=== PATIENT | female | born 1960 | race Caucasian/White ===

== ENCOUNTER → 2016-03-18 | Outpatient (CLI) | payer OTHER ==
--- NOTE | 2016-03-18 08:54 | REP ---
Chest x-ray: Two views. History: Cough. No comparison views. Findings: There is a granulomatous calcification in the right lower lobe. The lungs are otherwise well inflated and clear. A mild dextroconvex thoracic curve is seen. Pulmonary vasculature is not increased. Heart size is normal. Impression: No active cardiopulmonary disease. Signed by Solomon Jordan MD 03/18/2016 01:41 P
[2016-03-18 09:26] LABS: BASO % 0.8 % (0.0-1.0); EOS # 0.2 K/mm3 (0.0-0.50); EOS % 3.5 % (0.0-3.0); LYMPH % 39.7 % (24.0-44.0); MEAN CORPUSCULAR HEMOGLOBIN 31.6 pg (27.0-33.0); MEAN CORPUSCULAR HGB CONC 33.6 g/dl (32.0-36.5); MONO # 0.3 K/mm3 (0.0-0.8); MONO % 6.4 % (0.0-5.0); NEUTROPHILS # 2.2 K/mm3 (1.8-7.7); NEUTROPHILS % 45.4 % (36.0-66.0); RED CELL DISTRIBUTION WIDTH 11.8 % (11.5-14.5); WHITE BLOOD COUNT 4.9 K/mm3 (4.0-10.0)
[2016-03-18 09:40] LABS: ALBUMIN 3.2 GM/DL (3.2-5.2); ALBUMIN/GLOBULIN RATIO 0.73 (1.00-1.93); ALKALINE PHOSPHATASE 104 U/L (45-117); ALT/SGPT 22 U/L (12-78); ANION GAP 4 MEQ/L (8-16); AST/SGOT 19 U/L (15-37); BILIRUBIN,TOTAL 0.5 MG/DL (0.2-1.0); BLOOD UREA NITROGEN 20 MG/DL (7-18); CALCIUM LEVEL 8.6 MG/DL (8.5-10.1); CARBON DIOXIDE LEVEL 31 MEQ/L (21-32); CHLORIDE LEVEL 108 MEQ/L (98-107); CHOLESTEROL LEVEL 187 MG/DL (<200); CREATININE FOR GFR 0.69 MG/DL (0.55-1.02); GLOMERULAR FILTRATION RATE > 60.0 (>51); GLUCOSE, FASTING 88 MG/DL (70-105); SODIUM LEVEL 143 MEQ/L (136-145); TOTAL PROTEIN 7.6 GM/DL (6.4-8.2); TRIGLYCERIDES LEVEL 54 MG/DL (<150)
[2016-03-18 09:41] LABS: POTASSIUM SERUM 5.3 MEQ/L (3.5-5.1)
== END ==
LOC: M WUC 08:15
PROVIDERS: ATTEND Physician Assistant Medical
DX: Z00.00 Encounter for general adult medical examination without abnormal findings (principal); F17.211 Nicotine dependence, cigarettes, in remission

== ENCOUNTER → 2016-06-03 | Outpatient (CLI) | payer OTHER ==
[2016-06-03 13:57] LABS: ALKALINE PHOSPHATASE 103 U/L (45-117); ALT/SGPT 24 U/L (12-78); ANION GAP 6 MEQ/L (8-16); AST/SGOT 19 U/L (15-37); BILIRUBIN,TOTAL 0.4 MG/DL (0.2-1.0); BLOOD UREA NITROGEN 21 MG/DL (7-18); CALCIUM LEVEL 8.3 MG/DL (8.5-10.1); CARBON DIOXIDE LEVEL 31 MEQ/L (21-32); CHLORIDE LEVEL 108 MEQ/L (98-107); CREATININE FOR GFR 0.62 MG/DL (0.55-1.02); GLOMERULAR FILTRATION RATE > 60.0 (>51); GLUCOSE, FASTING 88 MG/DL (70-105); POTASSIUM SERUM 4.2 MEQ/L (3.5-5.1); SODIUM LEVEL 145 MEQ/L (136-145); THYROXINE (T4) 9.3 UG/DL (4.5-12.0); TOTAL PROTEIN 7.3 GM/DL (6.4-8.2)
== END ==
LOC: M WUC 09:41
PROVIDERS: ATTEND Physician Assistant Medical
DX: E03.9 Hypothyroidism, unspecified (principal)

== ENCOUNTER → 2016-09-05 | Outpatient (CLI) | payer OTHER ==
--- NOTE | 2016-09-07 10:17 | REPMRS ---
Patient History The patient states she had a clinical breast exam in 09/19 Patient is postmenopausal. No known family history of cancer. Digital Woman Screen Mammo: September 05, 2016 - Exam #: [id number] Bilateral CC and MLO view(s) were taken. Technologist: Marielena Marr, Technologist Prior study comparison: August 10, 2015, digital woman screen mammo performed at [facility] to [facility]. June 06, 2014, digital woman screen mammo performed at [facility]. May 17, 2013, digital woman screen mammo performed at [facility] to [facility]. FINDINGS: There are scattered fibroglandular densities. There is a moderate amount of residual fibroglandular tissue which is fairly symmetric. There is no interval development of dominant mass, architectural distortion, or clustered microcalcification typical of malignancy. There has been no change in the appearance of the mammogram from the prior studies. ASSESSMENT: BI-RADS/ACR category 1 mammogram. Negative. Recommendation Routine screening mammogram of both breasts in 1 year (for women over age 40). This mammogram was interpreted with the aid of an FDA-approved computer-aided dectection system. Electronically Signed By: Paul Jordan MD 09/07/16 [id number]
== END ==
LOC: M WHC 10:34
PROVIDERS: ATTEND Nurse Practitioner Family
DX: Z12.31 Encounter for screening mammogram for malignant neoplasm of breast (principal); Z78.0 Asymptomatic menopausal state

== ENCOUNTER → 2017-11-24 | Outpatient (CLI) | payer OTHER | LOC: M WHC 13:33 | DX: Z12.31 Encounter for screening mammogram for malignant neoplasm of breast (principal); N60.31 Fibrosclerosis of right breast; N60.32 Fibrosclerosis of left breast | CPT/HCPCS: 77067 ==

== ENCOUNTER → 2018-03-27 | Outpatient (CLI) | payer OTHER ==
--- NOTE | 2018-03-27 12:02 | REP ---
RIGHT TIBIA, FIBULA, TWO VIEWS: HISTORY: Pain. There is no acute fracture or dislocation. The joint spaces are normal in appearance. IMPRESSION: There is no acute fracture or dislocation. Electronically Signed by Otto Pastor MD 03/27/2018 12:12 P
[2018-03-27 12:33] LABS: BASO % 0.7 % (0.0-1.0); EOS # 0.1 10^3/uL (0.0-0.50); EOS % 3.1 % (0.0-3.0); HEMOGLOBIN 14.5 g/dl (12.0-15.5); LYMPH # 1.2 10^3/uL (1.5-4.5); LYMPH % 27.7 % (24.0-44.0); MEAN CORPUSCULAR HEMOGLOBIN 30.7 pg (27.0-33.0); MEAN CORPUSCULAR HGB CONC 33.7 g/dl (32.0-36.5); MEAN CORPUSCULAR VOLUME 91.1 fl (80.0-96.0); MONO # 0.5 10^3/uL (0.0-0.8); MONO % 10.3 % (0.0-5.0); NEUTROPHILS # 2.6 10^3/uL (1.8-7.7); PLATELET COUNT, AUTOMATED 350 10^3/uL (150-450); RED BLOOD COUNT 4.72 10^6/uL (4.00-5.40); WHITE BLOOD COUNT 4.5 10^3/uL (4.0-10.0)
[2018-03-27 12:44] LABS: INR 0.96; PROTHROMBIN TIME 12.8 SECONDS (12.1-14.4)
[2018-03-27 12:45] LABS: PARTIAL THROMBOPLASTIN TIME 29.7 SECONDS (25.4-37.6)
[2018-03-27 12:54] LABS: ERYTHROCYTE SEDIMENTATION RATE 26 mm/hr (0-30)
[2018-03-27 12:59] LABS: ALBUMIN 3.3 GM/DL (3.2-5.2); ALT/SGPT 22 U/L (12-78); BILIRUBIN,TOTAL 0.4 MG/DL (0.2-1.0); BLOOD UREA NITROGEN 22 MG/DL (7-18); CALCIUM LEVEL 8.8 MG/DL (8.5-10.1); CARBON DIOXIDE LEVEL 28 MEQ/L (21-32); CHLORIDE LEVEL 106 MEQ/L (98-107); GLOMERULAR FILTRATION RATE > 60.0 (>51); GLUCOSE, FASTING 96 MG/DL (70-100); POTASSIUM SERUM 3.9 MEQ/L (3.5-5.1); SODIUM LEVEL 140 MEQ/L (136-145); TOTAL PROTEIN 7.4 GM/DL (6.4-8.2)
== END ==
LOC: M WUC 10:48
PROVIDERS: ATTEND Physician Assistant
DX: R22.41 Localized swelling, mass and lump, right lower limb (principal)

== ENCOUNTER → 2018-03-27 | Outpatient (CLI) | payer OTHER ==
--- NOTE | 2018-03-27 13:40 | REP ---
Duplex extremity venous ultrasound: Right lower extremity. History: Right leg swelling. Rule out DVT. Findings: The deep veins are anechoic and fully compressible from the groin to the popliteal fossa in the right lower extremity. Color flow imaging is homogeneous. Spectral Doppler interrogation demonstrates intact respiratory variation in flow and normal manual augmentation of flow. There is no evidence of deep vein thrombosis. Impression: Negative right lower extremity duplex venous ultrasound. No evidence of deep vein thrombosis. Electronically Signed by Solomon Jordan MD 03/27/2018 01:32 P
--- NOTE | 2018-03-27 14:03 | REP ---
SOFT-TISSUE ULTRASOUND RIGHT LEG AND CALF: HISTORY: Patient reports feeling a lump in different places in the lateral calf area. She cannot pinpoint this lump at the time of the study. Findings: Scanning along the lateral calf soft tissues demonstrates an isoechoic to slightly hyperechoic area in the lateral calf 7 mm in diameter surrounded by some edematous fluid. This may be a small area of inflamed fat. No mass lesion is seen. No cyst or evidence of thrombophlebitis seen. IMPRESSION: Small lobule of inflamed or edematous fat seen in the lateral calf. No mass or cyst seen. No suspicious abnormality. Electronically Signed by Solomon Jordan MD 03/27/2018 05:35 P
== END ==
LOC: M RAD 12:51
PROVIDERS: ATTEND Physician Assistant
DX: R22.41 Localized swelling, mass and lump, right lower limb (principal)

== ENCOUNTER → 2020-07-10 | Outpatient (CLI) | payer OTHER ==
--- NOTE | 2020-07-10 16:26 | REPMRS ---
Patient History The patient states she had a clinical breast exam in 07/2020. Patient is postmenopausal. No known family history of cancer. No Hormone Replacement Therapy Patient states no breast complaints today. Patient has signed MRS History Sheet. Digital Woman Screen Mammo: July 10, 2020 - Exam #: [id number] Bilateral CC and MLO view(s) were taken. Technologist: Maura Senior, Technologist Prior study comparison: November 24, 2017, bilateral digital woman screen mammo performed at [facility]. September 05, 2016, digital woman screen mammo performed at [facility]. FINDINGS: There are scattered fibroglandular densities. Screening. Digital screening (2D) mammography was performed bilaterally in the CC and MLO projections. Additionally, breast tomosynthesis (3D mammography) was performed bilaterally in the CC and MLO projections. Todays exam was compared to the prior exams(s). By history, the patient has no complaints of a palpable breast abnormality or other significant breast complaints. The breasts are unchanged in size and shape. There are no amena-soft tissue densities or spiculated masses. There is no internal architectural distortion.Once again, stable benign appearing calcifications are seen. There are no suspicious amena-calcific clusters. Skin thickening or nipple retraction is not present. IMPRESSION: BI-RADS Category 2- Benign Findings(s). There is no evidence of malignant alteration of the breasts. Followup examination recommended in one year. The Volpara volumetric breast density category is B, there are scattered areas of fibroglandular density. This mammogram was read with the assistance of Ok [employer],an FDA approved computer aided detection system for mammography. The lifetime Tyrer-Cuzick score is 6% Negative x-ray reports should not delay surgical consultation if a dominant or clinically suspicious mass is present. Not all breast cancers can be identified by mammography. Therefore, we recommend that you continue to perform regular breast self-examination and physical examination and then promptly contact your physician of any concerns or changes. Adenosis and dense breasts may obscure an underlying neoplasm. Assessment: BI-RADS/ACR category 2 mammogram. Benign Findings. Recommendation Routine screening mammogram of both breasts in 1 year. Electronically Signed By: John Longoria DO 07/10/20 [id number]
== END ==
LOC: M WHC 13:58
PROVIDERS: ATTEND Advanced Practice Midwife
DX: Z12.31 Encounter for screening mammogram for malignant neoplasm of breast (principal)

== ENCOUNTER 2020-11-16 23:22 | Inpatient (IN) | payer OTHER ==
[~2020-11-16] VITALS: Ht 162.6 cm; Wt 63.0 kg
[2020-11-17] VITALS (14 sets, daily range): BP systolic 112–185; BP diastolic 56–129
[2020-11-17 01:33] LABS: RSV AMPLIFICATION NEGATIVE (NEGATIVE)
[2020-11-17] MEDS ORDERED: ISOVUE-370 76% 100ML VIAL As Ordered ONE (02:16)
--- NOTE | 2020-11-17 04:00 | REPVR ---
PROCEDURE INFORMATION: Exam: CTA Chest With Contrast Exam date and time: 11/17/2020 2:10 AM Age: 60 years old Clinical indication: Pain; Left-sided; Additional info: SOB, +ddimer, left sided pleural effusion TECHNIQUE: Imaging protocol: Computed tomographic angiography of the chest with contrast. 3D rendering (Not supervised by radiologist): MIP and/or 3D reconstructed images were created by the technologist. Radiation optimization: All CT scans at this facility use at least one of these dose optimization techniques: automated exposure control; mA and/or kV adjustment per patient size (includes targeted exams where dose is matched to clinical indication); or iterative reconstruction. Contrast material: ISO; Contrast volume: 75 ml; Contrast route: INTRAVENOUS (IV); COMPARISON: CR Chest, 2 view PA, Lat 11/16/2020 10:23 PM FINDINGS: PULMONARY ARTERIES: Diameter of the main pulmonary trunk at 29.6 mm is at the upper end of normal. Enhancement within the pulmonary arteries is preserved bilaterally through the distal segmental levels, without evidence of acute appearing occlusive pulmonary emboli. HEART AND AORTA: Cardiac size is within normal limits. No pericardial effusion. Evaluation of the proximal aorta is compromised by cardiac motion artifact. No thoracic aortic aneurysm or dissection is seen otherwise. There is atherosclerotic disease. Visualized proximal great vessels within the superior mediastinum are preserved. MEDIASTINUM: No mediastinal gas. The visualized thyroid gland is within normal limits. No mediastinal hematoma. Small amount of fluid is seen within the pericardial recesses. There is a 6.1 mm short axis prevascular lymph node noted. 10.9 mm short axis AP window lymph nodes noted. 9.5 mm short axis paratracheal lymph nodes are seen. Asymmetric prominent left hilar lymph nodes up to 8 mm in short axis noted. The significance of these lymph nodes is uncertain. Clinical correlation and follow-up is advised. No hiatal hernia. No periesophageal inflammatory stranding. LUNGS: There is a moderately large complex appearing slightly lobulated and non dependent left pleural effusion which demonstrates some expansile/mass-effect displacing the left hemidiaphragm downward. This could be inflammatory /infectious or malignant. Consider aspiration and culture/cytology. Pleural thickening along the left lung apex and the left mediastinal surface is noted. Confluent left upper lobe and lower lobe pulmonary opacities with a few air bronchograms noted. This could be secondary to atelectasis or pneumonia, however underlying mass cannot be excluded. There is an approximate 4 cm area of slight hypoenhancement within the collapse perihilar left lower lobe which could be related to infection or malignancy. There is a slightly lobular 2 cm area of slight hypoenhancement anteriorly at the lingula with similar differential. Re-evaluation of the left lung once fully expanded is advised. No pneumothorax is seen bilaterally. Emphysematous changes are noted. Mild dependent atelectasis at the right lung base. Right apical parenchymal scarring noted. Right lower lobe calcified granuloma noted. UPPER ABDOMEN: No free air or free fluid within the visualized upper most abdomen. Slight prominence of the visualized adrenal glands, likely secondary to hyperplasia. MSK AND BODY WALL: Bilateral breast fibroglandular calcifications noted. Correlation with clinical breast exam and recent mammogram is advised. Further characterization of these calcifications is limited by this study. Degenerative changes of the thoracic spine noted. IMPRESSION: No evidence for acute pulmonary embolus. Moderately large complex left pleural effusion with some mass effect. Confluent left pulmonary opacities are noted. Findings, differential and recommendations discussed above in detail. A few borderline lymph nodes are noted. Three month follow-up chest CT is advised to confirm resolution of these findings. Other incidental findings and nonemergent recommendations discussed above. Electronically signed by: Alberto Mcgill On 11/17/2020 03:59:48 AM
[2020-11-17] MEDS ORDERED: D5W/0.9% SODIUM CHLORIDE 1,000 ML IV SCH (05:10)
[2020-11-17] MEDS ORDERED: LEVALBUTEROL 1.25 MG/0.5 ML CONCENTRATE NEB NEB PRN (05:10)
[2020-11-17] MEDS ORDERED: BISACODYL 10 MG SUPP PR PRN (05:10)
[2020-11-17] MEDS ORDERED: ACETAMINOPHEN TAB 650MG DOSE (2X325MG) PO PRN (05:10)
[2020-11-17] MEDS ORDERED: ONDANSETRON 4MG/2ML VIAL IV PRN (05:10)
[2020-11-17] MEDS ORDERED: PERCOCET 5MG/325MG TAB PO PRN (05:10)
[2020-11-17] MEDS ORDERED: NORCO, ANEXSIA 5/325MG TABLET (HYDROcodone/ACETAMINOPHEN) PO PRN (05:10)
[2020-11-17] MEDS ORDERED: MIDAZOLAM INJ 2MG/2ML VIAL (J2250 PER 1MG) As Ordered ONE (05:29)
[2020-11-17] MEDS ORDERED: flumazeniL 0.5 MG/5 ML VIAL As Ordered ONE (05:30)
[2020-11-17] MEDS ORDERED: LIDOCAINE 1% MDV 20ML VIAL As Ordered ONE (05:31)
--- NOTE | 2020-11-17 05:44 | HPEPDOC ---
[facility] Medical History & Physical Date of Admission Nov 17, 2020 Date of Service: Nov 17, 2020 Attending Physician: JUAN NAVARRO MD History and Physical CHIEF COMPLAINT: SOB HISTORY OF PRESENT ILLNESS: Patient is a 60 yo female presenting with a 2 week history of progressively worsening SOB made worse with exertion, but now at rest as well. She presented to an urgent care yesterday evening and was found to have an SPO2 in the 80s with a positive d-dimer, and a CXR showing a large L-sided pleural effusion. In the ED she was found to have hypercarbic, hypoxic respiratory failure and CTA showing a L-sided pleural effusion. Dr. Cherry was contacted for chest tube placement and she was placed on biPAP. PAST MEDICAL HISTORY: Nicotine use disorder PAST SURGICAL HISTORY: L-ACL reconstruction SOCIAL HISTORY: Patient admits to about a 59 pack year history. She has smoked about 1 PPD since age 11. She admits to very occasional alcohol use about 1 glass of wine/week She denies any illicit drug use including, marijuana, heroin, cocaine, or PCP. She denies any history of recent travel Denies any pets at home. FAMILY HISTORY: Father of complications from COPD/emphysema Mother of diabetes complications No family history of lung cancer she is aware of. ALLERGIES: Please see below. REVIEW OF SYSTEMS: Constitutional: Denies fevers, chills, night sweats, or recent unexpected weight change HEENT: Denies headaches, head trauma, no visual changes or eye pain, denies nosebleeds or difficulty swallowing. Cardiovascular: Denies chest pain, palpitations, or orthopnea. Respiratory: Denies wheezing. Admits to shortness of breath and cough productive of clear sputum GI: Denies nausea, vomiting, abdominal pain, diarrhea, or constipation : Denies pain with urination or frequency Musculoskeletal: Denies joint pain or swelling Neuro/psych: Denies muscle weakness or sensory loss Skin: Denies skin rashes HOME MEDICATIONS: Please see below. PHYSICAL EXAMINATION: VITAL SIGNS: See below GENERAL APPEARANCE: Flushed appearing female sitting upright in bed with BiPAP on in no acute distress HEENT: NC, AT, EOMI, no scleral icterus, moist mucous membranes, no pharyngeal erythema. CARDIOVASCULAR: Tachycardic rate, regular rhythm, normal S1-S2. No murmurs, gallops, rubs. LUNGS: CTAB with diminished breath sounds, crackles appreciated on the the left. No wheezes or rhonchi. Dullness to percussion left greater than right ABDOMEN: Soft, nontender, nondistended, bowel sounds present. No hepatosplenomegaly. No masses or ecchymosis. No CVA tenderness. EXTREMITIES: No swelling or edema NEUROLOGICAL: No focal or sensory deficits. CN II-XII grossly intact. PSYCHIATRIC: Normal mood and affect LABORATORY DATA: See below. IMAGIN11/17/2020 CT angiogram chest "IMPRESSION: No evidence for acute pulmonary embolus. Moderately large complex left pleural effusion with some mass effect. Confluent left pulmonary opacities are noted. Findings, differential and recommendations discussed above in detail. A few borderline lymph nodes are noted. Three month follow-up chest CT is advised to confirm resolution of these findings." Other incidental findings and nonemergent recommendations discussed above MICROBIOLOGY: Please see below. Assessment/Plan: #. L-sided pleural Effusion -Management per thoracic surgery, Dr. Cherry consulted, recommendations appreciated #. Likely acute on chronic hypercarbic hypoxic respiratory failure -poc ABG showing hypercarbic respiratory acidosis,placed on bipap in the ED, will continue on floor -Suspect this may be from underlying lung disease and the effusion itself. -Pulmonary will need to be consulted for ongoing management in AM. #. Nicotine use disorder -Nicotine patch DVT prophylaxis: Per thoracic surgery Disposition: Pending improvement Vital Signs Vital Signs Date Time Temp Pulse Resp B/P (MAP) Pulse Ox O2 Delivery O2 Flow Rate FiO2 11/17/20 05:17 91 94 11/17/20 05:17 98.8 19 179/86 (117) Nasal Cannula 4.0 11/17/20 04:56 40 Laboratory Data Labs 24H Laboratory Tests 2 11/17/20 00:47: Coronavirus (COVID-19)(PCR) NEGATIVE, Influenza Type A (RT-PCR) NEGATIVE, Influenza Type B (RT-PCR) NEGATIVE, Respiratory Syncytial Virus (PCR) NEGATIVE 11/17/20 02:42: POC pH (Misc Panel) 7.308L, POC Base Excess (Misc Panel) 14.0H, POC Saturated Percent O2 (Misc) 93L, POC pO2 (Misc Panel) 76.0L, POC pCO2 (Misc Panel) 79.8*H, POC HCO3 (Misc Panel) 40.0H, POC Total CO2 (Misc Panel) 42.0H 11/17/20 04:41: POC pH (Misc Panel) 7.310L, POC Base Excess (Misc Panel) 14.0H, POC Saturated Percent O2 (Misc) 88L, POC pO2 (Misc Panel) 62.0L, POC pCO2 (Misc Panel) 80.1*H, POC HCO3 (Misc Panel) 40.3H, POC Total CO2 (Misc Panel) 43.0H Home Medications Scheduled Multivitamins (Thera M Plus Tablet) 1 Each Tablet, 1 TAB PO DAILY Allergies Coded Allergies: No Known Allergies (Unverified , 07/07/08) GME ATTESTATION GME ATTESTATION My faculty preceptor for this patient encounter was physically present during the encounter and was fully available. All aspects of the patient interview, examination, medical decision making process, and medical care plan development were reviewed and approved by the faculty preceptor. The faculty preceptor is aware and concurs with the plan as stated in the body of this note and will attest to such by his/her cosignature. ATTENDING NOTE Text Note Date of Service The patient was seen on 11/17/20. NOTE TIME OF SERVICE 510AM is a 60 yr old F w a hx of "lung scar", tobacco abuse and remote hx of Vaping who presented w c/o shortness of breath & fatigue for several weeks. PE: BIPAP mask in place/ appears chronically ill / breath sounds diminished / dullness to percussion at the left She will be admitted for # Acute on Chronic Hypoxemic and Hypercarbic Respiratory Failure -consult Pulm for BIPAP co-management # Left sided Pleural effusion (likely malignant) - f/u w for thoracentesis & f/u on pleural fluid analysis results # ADAM & LLL lesions (likley malignancy) - hold off abx pending Pulm recs # Breast Calcifications MAMOGRAM JULY 2020: Assessment: BI-RADS/ACR category 2 mammogram. Benign Findings. rest per 's H&P SWETA SOLIMAN DO Nov 17, 2020 05:44 JUAN NAVARRO MD Nov 17, 2020 23:04
--- NOTE | 2020-11-17 05:48 | IPNPDOC ---
Text Note Date of Service The patient was seen on 11/17/20. NOTE TIME OF SERVICE 510AM is a 60 yr old F w a hx of "lung scar", tobacco abuse and remote hx of Vaping who presented w c/o shortness of breath & fatigue for several weeks. PE: BIPAP mask in place/ appears chronically ill / breath sounds diminished / dullness to percussion at the left She will be admitted for # Acute on Chronic Hypoxemic and Hypercarbic Respiratory Failure -consult Pulm for BIPAP co-management # Left sided Pleural effusion (likely malignant) - f/u w for thoracentesis & f/u on pleural fluid analysis results # ADAM & LLL lesions (likley malignancy) - hold off abx pending Pulm recs # Breast Calcifications - will need breast US & mammogram rest per 's H&P VS,Fishbone, I+O VS, Fishbone, I+O Vital Signs Date Time Temp Pulse Resp B/P (MAP) Pulse Ox O2 Delivery O2 Flow Rate FiO2 11/17/20 05:17 91 94 11/17/20 05:17 98.8 19 179/86 (117) Nasal Cannula 4.0 11/17/20 04:56 40 JUAN NAVARRO MD Nov 17, 2020 05:48
[2020-11-17 05:50] LABS: BASO # 0.1 10^3/uL (0.0-0.2); BASO % 0.8 % (0.0-1.0); EOS # 0.1 10^3/uL (0.0-0.5); EOS % 1.2 % (0.0-3.0); HEMATOCRIT 53.4 % (36.0-47.0); HEMOGLOBIN 16.6 g/dl (12.0-15.5); LYMPH # 1.4 10^3/uL (1.5-5.0); LYMPH % 18.6 % (24.0-44.0); MEAN CORPUSCULAR HEMOGLOBIN 30.9 pg (27.0-33.0); MEAN CORPUSCULAR HGB CONC 31.1 g/dl (32.0-36.5); MEAN CORPUSCULAR VOLUME 99.3 fl (80.0-96.0); MONO # 0.7 10^3/uL (0.0-0.8); MONO % 9.1 % (2.0-8.0); NEUTROPHILS # 5.1 10^3/uL (1.5-8.5); PLATELET COUNT, AUTOMATED 338 10^3/uL (150-450); RED BLOOD COUNT 5.38 10^6/uL (4.00-5.40); WHITE BLOOD COUNT 7.4 10^3/uL (4.0-10.0)
[2020-11-17 06:00] LABS: INR 0.97; PROTHROMBIN TIME 13.3 SECONDS (12.7-14.5)
[2020-11-17 06:06] LABS: BLOOD UREA NITROGEN 17 MG/DL (7-18); CALCIUM LEVEL 8.8 MG/DL (8.8-10.2); CARBON DIOXIDE LEVEL 36 MEQ/L (21-32); CHLORIDE LEVEL 102 MEQ/L (98-107); CREATININE FOR GFR 0.44 MG/DL (0.55-1.30); GLOMERULAR FILTRATION RATE > 60.0 (>45); GLUCOSE, FASTING 96 MG/DL (70-100); POTASSIUM SERUM 4.5 MEQ/L (3.5-5.1); SODIUM LEVEL 142 MEQ/L (136-145)
[2020-11-17] MEDS ORDERED: VITMTA PO (06:18)
[2020-11-17] MEDS ORDERED: HOME MED LIST COMPLETE! XX SCH (06:20)
[2020-11-17] MEDS: KETOROLAC 30 MG/ML 1ML VIAL IV SCH ×3 (07:02→20:13)
[2020-11-17] MEDS ORDERED: MIDAZOLAM INJ 2MG/2ML VIAL (J2250 PER 1MG) IV ONE (07:35)
[2020-11-17] MEDS ORDERED: LIDOCAINE 1% MDV 20ML VIAL IM ONE (07:35)
[2020-11-17] MEDS ORDERED: MIDAZOLAM INJ 2MG/2ML VIAL (J2250 PER 1MG) IV STA (07:38)
[2020-11-17] MEDS: LEVALBUTEROL 1.25 MG/0.5 ML CONCENTRATE NEB NEB SCH ×3 (07:41→20:01)
--- NOTE | 2020-11-17 08:02 | REP ---
INDICATION: after chest tube placed COMPARISON: 11/16/2020 TECHNIQUE: Portable AP view of the chest FINDINGS: Left-sided chest tube has been subsequently placed. Left-sided pleural effusion is considerably improved. Left mid to lower lobe atelectasis is identified. Remainder of lung dominguez are relatively clear. No obvious pneumothorax. IMPRESSION: 1. Left-sided chest tube with significantly decreased left pleural effusion. 2. Minimal amount of residual left pleural fluid and left lower lobe atelectasis now identified. <Electronically signed by Keaton Stanley > 11/17/20 [id number]
[2020-11-17] MEDS: NICOTINE 14 MG/24 HR TRANSDERMAL TD SCH (08:37)
[2020-11-17] MEDS: MOM 30ML SUSPENSION UDC PO SCH (08:37)
[2020-11-17] MEDS: DOCUSATE SODIUM 100MG CAPSULE PO SCH ×2 (08:37→20:14)
[2020-11-17] MEDS: PANTOPRAZOLE 40MG TAB (PROTONIX) PO SCH (08:38)
[2020-11-17] MEDS: PERCOCET 5MG/325MG TAB PO PRN ×2 (08:49→16:21)
[2020-11-17 08:59] LABS: LDH LACTATE DEHYDROGENASE 162 U/L (84-246)
[2020-11-17] MEDS ORDERED: HEPARIN SOD (PORCINE) 5000UNITS/ML 1ML VIAL/SYRINGE SC SCH (09:00)
[2020-11-17 09:14] LABS: PH BODY FLUID 7.745 UNITS (NOT ESTABLISHED); SOURCE, BODY FLUID pH PLEURAL
[2020-11-17 09:16] LABS: APPEARANCE, BODY FLUID CLEAR (CLEAR); PLEURAL FL COLOR PALE YELLOW (COLORLESS); SOURCE, BODY FLUID PLEURAL
--- NOTE | 2020-11-17 09:32 | CR.PDOC ---
General Date of Consultation: Nov 17, 2020 Referring Provider: JUAN NAVARRO MD Attending Physician: JUAN NAVARRO MD Consultation REASON FOR CONSULTATION/CHIEF COMPLAINT: Shortness of breath. HISTORY OF PRESENT ILLNESS: This is a 60-year-old lady with past medical history of smoking presented to hospital with shortness of breath. Patient has been experiencing shortness of breath for the last 3 days. He has became progressive the point where she had to be admitted to the hospital. Other associated symptom include productive cough consist of yellow sputum which is not her baseline. She denies of fever, chills, chest pain, palpitation, orthopnea, lower extremity swelling. She denies of any allergy, pets, sick contact, travel history. Upon arrival to the hospital, patient was found to be hypercapnic and hypoxic on initial blood gas. She was immediately put on BiPAP. I was consulted at that time. Further work-up revealed she has a large loculated left sided pleural effusion which thoracic surgery was consulted and a large bore chest tube has been placed for drainage. She was also found to be wheezing on admission and has been admitted for community-acquired pneumonia and COPD exacerbation. PAST MEDICAL HISTORY: Nicotine use disorder PAST SURGICAL HISTORY: L-ACL reconstruction SOCIAL HISTORY: Patient admits to about a 59 pack year history. She has smoked about 1 PPD since age 11. She admits to very occasional alcohol use about 1 glass of wine/week She denies any illicit drug use including, marijuana, heroin, cocaine, or PCP. She denies any history of recent travel Denies any pets at home. FAMILY HISTORY: Father of complications from COPD/emphysema Mother of diabetes complications No family history of lung cancer she is aware of. ALLERGIES: Please see below. ALLERGIES: Please see below. HOME MEDICATIONS: Please see below. REVIEW OF SYSTEMS: CONSTITUTIONAL: Denies of appetite change, weight loss, fever, chills, night sweats. HEENT: Denies of sinus pain or sinus pressure, sore throat. CARDIOVASCULAR: Denies chest pain or palpitation, orthopnea, PND, lower extremity swelling. RESPIRATORY: Admits to shortness of breath and productive cough. Denies of wheezing, hemoptysis. GENITOURINARY: Denies of dysuria or flank pain. MUSCULOSKELETAL: Denies of joint pain or swelling. GASTROINTESTINAL: Denies abdominal pain, nausea, vomiting, blood in stool. SKIN: Denies a rash. NEUROLOGICAL: Denies of slurred speech or focal weakness. PSYCHIATRIC: Denies depression. ENDOCRINE: Denies weight change. HEMATOLOGIC/LYMPHATIC: Denies bleeding. ALLERGIC/IMMUNOLOGIC: Denies allergy. PHYSICAL EXAMINATION: VITAL SIGNS: Please see below. GENERAL APPEARANCE: Appears older than stated age but not in any distress, alert and oriented x3. HEENT: No evidence of JVD or cervical adenopathy, neck is supple. RESPIRATORY: Diffuse bilateral wheezing with left basilar crackles. CARDIOVASCULAR: Normal S1-S2 with no evidence of murmur. ABDOMEN: Soft nontender hyperactive bowel sounds. EXTREMITIES: No evidence of clubbing or lower extremity swelling. NEUROLOGICAL: No focal finding. PSYCHIATRIC: Alert and oriented x3, not depressed. LABORATORY DATA: Please see below. ASSESSMENT/PLAN: This is a 60-year-old lady with past medical history of smoking presented to hospital with shortness of breath. 1. Loculated left-sided pleural effusion status post chest tube insertion by thoracic surgery 2. COPD exacerbation 3. Community-acquired pneumonia 4. Tobacco abuse 5. Acute on chronic hypercapnic hypoxic respiratory failure secondary to COPD exacerbation Plan: -Left fluid analysis is consistent with exudative process. Differential includes parapneumonic effusion, empyema, malignant effusion. Continue to monitor output. Fluid cytology and cultures are pending. -Recommend to start patient on treatment for community-acquired pneumonia with ceftriaxone and azithromycin. -Recommend to start patient for COPD exacerbation with systemic corticosteroid. -Please add ipratropium nebulizer to her regimen. -Once she is stabilized from COPD exacerbation standpoint, she should be discharged with Spiriva and albuterol as needed. -It appears she may be a chronic CO2 retainer. She may qualify for home BiPAP therapy. This can be evaluated further when she is seen in the pulmonary clinic. -Strongly advised smoking cessation. Vital Signs/I&O Vital Signs Date Time Temp Pulse Resp B/P (MAP) Pulse Ox O2 Delivery O2 Flow Rate FiO2 11/17/20 08:49 84 16 133/73 94 Nasal Cannula 4.0 11/17/20 06:00 40 11/17/20 05:17 98.8 I&O- Last 24 Hours up to 6 AM 11/17/20 06:00 Intake Total 0 ml Output Total 350 ml Balance -350 ml Laboratory Data Labs 24H Laboratory Tests 2 11/17/20 00:47: Coronavirus (COVID-19)(PCR) NEGATIVE, Influenza Type A (RT-PCR) NEGATIVE, Influenza Type B (RT-PCR) NEGATIVE, Respiratory Syncytial Virus (PCR) NEGATIVE 11/17/20 02:42: POC pH (Misc Panel) 7.308L, POC Base Excess (Misc Panel) 14.0H, POC Saturated Percent O2 (Misc) 93L, POC pO2 (Misc Panel) 76.0L, POC pCO2 (Misc Panel) 79.8*H, POC HCO3 (Misc Panel) 40.0H, POC Total CO2 (Misc Panel) 42.0H 11/17/20 04:41: POC pH (Misc Panel) 7.310L, POC Base Excess (Misc Panel) 14.0H, POC Saturated Percent O2 (Misc) 88L, POC pO2 (Misc Panel) 62.0L, POC pCO2 (Misc Panel) 80.1*H, POC HCO3 (Misc Panel) 40.3H, POC Total CO2 (Misc Panel) 43.0H 11/17/20 05:33: Immature Granulocyte % (Auto) 0.3, Neutrophils (%) (Auto) 70.0H, Lymphocytes (%) (Auto) 18.6L, Monocytes (%) (Auto) 9.1H, Eosinophils (%) (Auto) 1.2, Basophils (%) (Auto) 0.8, Neutrophils # (Auto) 5.1, Lymphocytes # (Auto) 1.4L, Monocytes # (Auto) 0.7, Eosinophils # (Auto) 0.1, Basophils # (Auto) 0.1, Nucleated Red Blood Cells % (auto) 0.0, Prothrombin Time 13.3, Prothromb Time International Ratio 0.97, Anion Gap 4L, Glomerular Filtration Rate > 60.0, Calcium Level 8.8, Lactate Dehydrogenase 162 11/17/20 07:58: Body Fluid pH 7.745, Body Fluid pH Source PLEURAL, Body Fluid WBC (Auto) 396H, Body Fluid RBC (Auto) < 2, Body Fluid Mononuclear Cells % Auto 94.4H, Fluid Polymorphonuclear Cell % Auto 5.6H, Pleural Fluid Source PLEURAL, Pleural Fluid Color PALE YELLOW, Pleural Fluid Appearance CLEAR CBC/BMP Laboratory Tests 11/17/20 05:33 Microbiology Microbiology 11/17/20 Acid Fast Stain, Received Pending 11/17/20 Mycobacterial Culture, Received Pending 11/17/20 Fungal Smear, Received Pending 11/17/20 Fungal Culture, Received Pending 11/17/20 Gram Stain, Received Pending 11/17/20 Anaerobic Culture, Received Pending 11/17/20 Body Fluid Culture, Received Pending Allergies Coded Allergies: No Known Allergies (Unverified , 07/07/08) Home Medications Scheduled Multivitamins (Thera M Plus Tablet) 1 Each Tablet, 1 TAB PO DAILY, (Reported) BARBARA BARBOUR MD Nov 17, 2020 09:32
--- NOTE | 2020-11-17 09:48 | CR ---
CONSULTATION DATE: 11/17/2020 REFERRING PHYSICIAN/REASON FOR CONSULTATION: Patient is seen at the request of Dr. Gordon of the Recovery Room for a large pleural effusion with hypercarbia. HISTORY OF PRESENT ILLNESS: The patient is a 60-year-old white female whose story starts about three weeks ago. She has a vigorous job at [employer]. She started to feel short of breath with exertion. The shortness of breath has been progressive and getting worse such that this evening she had trouble breathing even at rest, and therefore sought medical attention. She was concerned that she had COVID. She has had no cough. No sputum production. No fevers, chills or sweats. She has lost 10 pounds in the last one year. There is no dysphagia. There is no chest pain or chest discomfort. She states about 10 years ago she was found to have a "spot" on her left lung. PAST MEDICAL HISTORY: None. MEDICATIONS: None. PAST SURGICAL HISTORY: None. ALLERGIES: None. EXPOSURES: No dogs, birds or cats at home. TRAVEL HISTORY: She has traveled to [place] but not to the [facility]. There is no foreign travel. OCCUPATIONAL HISTORY: Works at the [employer] for [employer]. HABITS: Smokes 1 to 1/2 pack per day since the age of 11 giving her an approximate 50 pack year history. Drinks alcohol socially on the weekends and no illicit drugs. REVIEW OF SYSTEMS: Constitutional: See HPI without fevers, chills, sweats or night sweats. Does have a 10 pound weight loss. Mouth: She wears dentures. Respiratory: See HPI. Cardiac: Without palpitations, tachycardia or prior myocardial infarction, or intermittent claudication, without peripheral edema. GI: Without nausea or vomiting, diarrhea, or constipation, melena or hematochezia, abdominal pain or hematemesis. : Without dysuria or hematuria, or prior history of renal stones. Endocrine: Without diabetes or thyroid disease. Neurologic: Without paresthesias, paralysis or prior seizures. Psychiatric: Without pathological anxieties, depression or psychoses. PHYSICAL EXAMINATION: GENERAL APPEARANCE: An overweight obese white female short of breath in mild respiratory distress at rest. VITAL SIGNS: Temperature is 98.8, pulse is 92 in sinus rhythm, respiratory rate is 19 without the use of accessory muscles. She is 95 to 94% saturated on 4 liters of nasal cannula. Blood pressure was 179/86. HEENT: Eyes are equal, round and reactive to light. Extraocular motions are intact. Sclera are nonicteric. Nose is without deformity. Mouth shows her mucous membranes to be pink and moist. Lips and commissures without lesions or thrush. NECK: Supple. There is no jugular venous distention. No subcutaneous emphysema. Trachea is midline. There is no thyromegaly or lymphadenopathy. She has 2+ carotid upstrokes without bruits. LUNGS: Markedly decreased breath sounds on the left side with E to A egophony and a dull percussion note on the left side. The right side shows normal vesicular sounds without wheezes, rhonchi or rales with a percussion note that is full to the diaphragm. CARDIAC: Without murmurs, clicks, gallops or rubs. I cannot feel her PMI. S1 and S2 are normal. ABDOMEN: Soft, nontender. Bowel sounds are positive. There is no hepatomegaly. There is no CVA tenderness. EXTREMITIES: No pretibial edema. No calf tenderness. No differential swelling of the upper extremities. SKIN: Warm, dry and perfused without cyanosis or mottling including that of nailbeds and knees. NEUROLOGIC: Cranial nerves II-XII intact, normal gross and gross sensation intact. Gait is not tested. PSYCHIATRIC: She is awake, alert and oriented x3 with appropriate mood and affect and conversational. LABORATORY DATA: Her white count today is 7.4 with a hemoglobin and hematocrit of 17.3 and 56. Platelet count is 331,000 and differential shows 71% neutrophils, 15% lymphocytes, 9% monocytes. There are no immature forms or toxic granulations. Her electrolytes are normal with a total CO2 of 37, BUN and creatinine of 19 and 0.56, calcium 8.8 with an albumin of 2.9. AST and ALT are normal. Blood gases show a pH of 7.31 with a pCO2 of 80 and a pO2 of 62 and a base excess of +14. Her PT/INR are 13.3 and 0.97 respectively. She is COVID negative. Her chest x-ray shows opacity occupying the entire left lower hemithorax. It looks as though she has a pleural effusion long term up the chest. The right lung does not show any masses and she has a sharp costophrenic angle on the right. Her chest CT confirms the right large pleural effusion which looks to be somewhat loculated but this loculation looks to be connected to the others. Upper and lower lobe are severely compressed. This is done under CT protocol and I do not see a pulmonary embolism. There is some aeration of the left upper lobe. There is some left sided paratracheal mediastinal lymphadenopathy with a paratracheal node measuring 2.1 cm x 1 cm. Her left adrenal looks fairly generous, it may have a mass within it. The right adrenal shows a normal configuration. There are no liver lesions. There is no pericardial effusion. IMPRESSION: 1. Large left sided loculated pleural effusion. 2. Chronic hypercarbia. 3. Possible dehydration with an increased hemoglobin and hematocrit versus erythrocytosis from chronic hypoxia. 4. Tobacco abuse. 5. Hypertension. PLAN/DISCUSSION: I will immediately place a chest tube to drain her chest, hopefully the lung will back to the chest wall, if it does not I will undertake a TPA pleurolysis. She is at this point on BiPAP. Although her pH is acceptable at 7.3 with a markedly increased base excess which indicates this is a very chronic process and does not need CPAP. Once expanding the lung we will repeat her blood gases. For the time being I will put her on 4 liters nasal cannula to be supplemented by non-rebreather mask if necessary for the chest tube procedure. Will send specimens for all of the studies including cytology, hematology, chemistries and bacteriologies.
--- NOTE | 2020-11-17 09:48 | RO ---
OPERATIVE NOTE DATE OF OPERATION: 11/17/2020 PREOPERATIVE DIAGNOSIS: Large left sided semi-loculated effusion. POSTOPERATIVE DIAGNOSIS: Large left sided semi-loculated effusion. PROCEDURE: Insertion of left posterolateral chest tube. SURGEON: LENA HINTON M.D. DESCRIPTION OF PROCEDURE: Under satisfactory moderate sedation achieved with 4 mg of Versed, patient was prepped and draped in the usual sterile fashion. The skin and subcutaneous tissue and pleura were infiltrated with 1% Lidocaine in and around the sixth intercostal space. An incision was made and a tunnel created in the chest without difficulty. A #24 chest tube was placed. It did stop at about 12 cm. It was secured to the chest wall a #2 Tevdek suture; 2000 ml of serous fluid was removed. It was sent for requisite specimens of cytology, hematologies, bacteriologies and chemistries. The patient tolerated the procedure well and a chest x-ray is pending. [facility]
[2020-11-17 09:52] LABS: AMYLASE, BODY FLUID 56 U/L (NOT ESTABLISHED); CHOLESTEROL, BODY FLUID 76 MG/DL (NOT ESTABLISHED); LDH, BODY FLUID 121 U/L (NOT ESTABLISHED); SOURCE, BODY FLUID ALBUMIN PLEURAL; SOURCE, BODY FLUID AMYLASE PLEURAL; SOURCE, BODY FLUID CHOL PLEURAL; SOURCE, BODY FLUID GLUCOSE PLEURAL; SOURCE, BODY FLUID LDH PLEURAL; SOURCE, BODY FLUID TOT PROTEIN PLEURAL; SOURCE, BODY FLUID TRIG PLEURAL; TOTAL PROTEIN, BODY FLUID 4.5 G/DL (NOT ESTABLISHED); TRIGLYCERIDE, BODY FLUID 18 MG/DL (NOT ESTABLISHED)
[2020-11-17 10:17] LABS: ABG BASE EXCESS 6.1 (-2.0-2.0); ABG HCO3 36.2 MEQ/L (22.0-26.0); ABG O2 SATURATION 93.7 % (95.0-99.0); ABG PARTIAL PRESSURE O2 71.3 mmHg (75.0-100.0); ABG STANDARD HCO3 29.8 MEQ/L (22.0-26.0); ABG TOTAL CO2 38.6 MEQ/L (23.0-31.0); ABG pH (ARTERIAL) 7.291 UNITS (7.350-7.450)
[2020-11-17 10:19] LABS: ABG PARTIAL PRESSURE CO2 76.9 mmHg (35.0-45.0)
[2020-11-17] MEDS: IPRATROPIUM 0.02% SOLN 0.5MG 2.5ML NEB INH SCH ×2 (13:40→20:01)
--- NOTE | 2020-11-17 13:50 | IPNPDOC ---
Subjective Date Seen The patient was seen on 11/17/20. Subjective Chief Complaint/HPI Patient was seen and examined at bedside this morning. She reports feeling short of breath for several months now which was getting worse, however never seek medical advice. She endorses not being seen by a primary care physician for some time. She also reported having a 10 pound unintentional weight loss. She is status post chest tube placement and reports significant improvement in her breathing. At this junction, she denied chest pain, shortness of breath, abdominal pain, nausea, vomiting, problems with urination and bowel movements. Objective Physical Examination Other physical findings General: Lying in bed, no acute distress Head/Neck/Throat: Trachea midline, mucous membranes moist Eyes: Sclera anicteric, no erythema or discharge appreciated bilaterally Thorax: Normal respiratory effort on room air, right lung field crackles appreciated, chest tube in place draining red fluid (approximately 30 mL) Cardiovascular: Normal rate, regular rhythm, normal S1, S2; no S3, S4, rubs/ gallops/murmurs Abdomen: Bowel sounds present, soft/nontender/nondistended Genitourinary: No CVA tenderness, no Short in place Musculoskeletal: Moving all extremities, no edema Skin: Warm, dry Neurologic: AAOx3, speech fluent and goal-directed, no focal deficits, grossly intact Assessment /Plan Assessment #Acute on chronic respiratory failure with hypercapnia and hypoxia -Status post chest tube drainage for loculated left-sided pleural effusion. Fluid analysis consistent with exudative process and differentials include malignant effusion and possibly parapneumonic effusion. -Considering her 10 pound unintentional weight loss and smoking history maligna ncy is of concern. We will await for fluid cytology. -5-7 day course of antibiotics to cover for pneumonia. Obtain sputum cultures. -Support care with [facility], suspicion for copd - she will require pfts as outpatient #Erythrocytosis -Possibly 2/2 to her chronic respiratory failure vs dehydration. -If persistently elevated obtain erythropoietin levels. #Breast calcifications -She will need to follow-up in outpatient for mammography and ultrasound #DVT ppx -Heparin subq Plan/VTE VTE Prophylaxis Ordered?: Yes VS, I&O, 24H, Fishbone Vital Signs/I&O Vital Signs Date Time Temp Pulse Resp B/P (MAP) Pulse Ox O2 Delivery O2 Flow Rate FiO2 11/17/20 12:00 4.0 11/17/20 12:00 98.0 81 20 123/68 (86) 95 Nasal Cannula 11/17/20 06:00 40 I&O- Last 24 Hours up to 6 AM 11/17/20 06:00 Intake Total 0 ml Output Total 350 ml Balance -350 ml Laboratory Data 24H LABS Laboratory Tests 2 11/17/20 00:47: Coronavirus (COVID-19)(PCR) NEGATIVE, Influenza Type A (RT-PCR) NEGATIVE, Influenza Type B (RT-PCR) NEGATIVE, Respiratory Syncytial Virus (PCR) NEGATIVE 11/17/20 02:42: POC pH (Misc Panel) 7.308L, POC Base Excess (Misc Panel) 14.0H, POC Saturated Percent O2 (Misc) 93L, POC pO2 (Misc Panel) 76.0L, POC pCO2 (Misc Panel) 79.8*H, POC HCO3 (Misc Panel) 40.0H, POC Total CO2 (Misc Panel) 42.0H 11/17/20 04:41: POC pH (Misc Panel) 7.310L, POC Base Excess (Misc Panel) 14.0H, POC Saturated Percent O2 (Misc) 88L, POC pO2 (Misc Panel) 62.0L, POC pCO2 (Misc Panel) 80.1*H, POC HCO3 (Misc Panel) 40.3H, POC Total CO2 (Misc Panel) 43.0H 11/17/20 05:33: Immature Granulocyte % (Auto) 0.3, Neutrophils (%) (Auto) 70.0H, Lymphocytes (%) (Auto) 18.6L, Monocytes (%) (Auto) 9.1H, Eosinophils (%) (Auto) 1.2, Basophils (%) (Auto) 0.8, Neutrophils # (Auto) 5.1, Lymphocytes # (Auto) 1.4L, Monocytes # (Auto) 0.7, Eosinophils # (Auto) 0.1, Basophils # (Auto) 0.1, Nucleated Red Blood Cells % (auto) 0.0, Prothrombin Time 13.3, Prothromb Time International Ratio 0.97, Anion Gap 4L, Glomerular Filtration Rate > 60.0, Calcium Level 8.8, Lactate Dehydrogenase 162 11/17/20 07:58: Body Fluid pH 7.745, Body Fluid pH Source PLEURAL, Body Fluid WBC (Auto) 396H, Body Fluid RBC (Auto) < 2, Body Fluid Mononuclear Cells % Auto 94.4H, Fluid Polymorphonuclear Cell % Auto 5.6H, Body Fluid Glucose Source PLEURAL, Body Fluid Glucose 98, Body Fluid Protein Source PLEURAL, Body Fluid Total Protein 4.5, Body Fluid Albumin Source PLEURAL, Body Fluid Albumin 1.8, Body Fluid LDH Source PLEURAL, Body Fluid Lactate Dehydrogenase 121, Body Fluid Amylase Source PLEURAL, Body Fluid Amylase 56, Body Fluid Cholesterol 76, Body Fluid Cholester ol Source PLEURAL, Body Fluid Triglyceride Source PLEURAL, Body Fluid Triglycerides 18, Pleural Fluid Source PLEURAL, Pleural Fluid Color PALE YELLOW, Pleural Fluid Appearance CLEAR 11/17/20 10:06: Blood Gas Bicarbonate Standard 29.8H, Arterial Blood pH 7.291L, Arterial Blood Partial Pressure CO2 76.9*H, Arterial Blood Partial Pressure O2 71.3L, Arterial Blood Total CO2 38.6H, Arterial Blood HCO3 36.2H, Arterial Blood Base Excess 6.1H, Arterial Blood Oxygen Saturation 93.7L CBC/BMP Laboratory Tests 11/17/20 05:33 Microbiology Microbiology 11/17/20 Acid Fast Stain, Received Pending 11/17/20 Mycobacterial Culture, Received Pending 11/17/20 Fungal Smear, Received Pending 11/17/20 Fungal Culture, Received Pending 11/17/20 Gram Stain - Final, Resulted 11/17/20 Anaerobic Culture, Resulted Pending 11/17/20 Body Fluid Culture, Received Pending KELI ROJAS M.D. Nov 17, 2020 13:48
[2020-11-17] MEDS: cefTRIAXone SOD 1 GM in D5W MINI-BAG PLUS 50 ML IV SCH (15:43)
[2020-11-17] MEDS: AZITHROMYCIN 250MG TABLET PO SCH (15:43)
[2020-11-17] MEDS: HEPARIN SOD (PORCINE) 5000UNITS/ML 1ML VIAL/SYRINGE SC SCH ×2 (15:44→22:26)
[2020-11-17] MEDS ORDERED: methylPREDNISolone 125MG 2ML VIAL IV ONE (23:10)
[2020-11-18] VITALS (11 sets, daily range): BP systolic 116–145; BP diastolic 63–82
[2020-11-18] MEDS: IPRATROPIUM 0.02% SOLN 0.5MG 2.5ML NEB INH SCH ×4 (01:01→20:15)
[2020-11-18] MEDS: LEVALBUTEROL 1.25 MG/0.5 ML CONCENTRATE NEB NEB SCH ×4 (01:01→20:15)
[2020-11-18] MEDS: KETOROLAC 30 MG/ML 1ML VIAL IV SCH ×3 (04:31→19:51)
[2020-11-18 04:59] LABS: BASO % 0.3 % (0.0-1.0); HEMATOCRIT 50.3 % (36.0-47.0); HEMOGLOBIN 15.5 g/dl (12.0-15.5); LYMPH # 0.2 10^3/uL (1.5-5.0); LYMPH % 2.8 % (24.0-44.0); MEAN CORPUSCULAR HEMOGLOBIN 31.2 pg (27.0-33.0); MEAN CORPUSCULAR HGB CONC 30.8 g/dl (32.0-36.5); MEAN CORPUSCULAR VOLUME 101.2 fl (80.0-96.0); MONO # 0.1 10^3/uL (0.0-0.8); MONO % 0.9 % (2.0-8.0); NEUTROPHILS # 6.5 10^3/uL (1.5-8.5); NEUTROPHILS % 95.6 % (36.0-66.0); PLATELET COUNT, AUTOMATED 289 10^3/uL (150-450); RED BLOOD COUNT 4.97 10^6/uL (4.00-5.40); WHITE BLOOD COUNT 6.8 10^3/uL (4.0-10.0)
[2020-11-18 05:32] LABS: BLOOD UREA NITROGEN 20 MG/DL (7-18); CALCIUM LEVEL 8.4 MG/DL (8.8-10.2); CARBON DIOXIDE LEVEL 36 MEQ/L (21-32); CHLORIDE LEVEL 102 MEQ/L (98-107); CREATININE FOR GFR 0.58 MG/DL (0.55-1.30); GLOMERULAR FILTRATION RATE > 60.0 (>45); GLUCOSE, FASTING 179 MG/DL (70-100); PHOSPHORUS LEVEL 3.7 MG/DL (2.5-4.9); POTASSIUM SERUM 4.8 MEQ/L (3.5-5.1); SODIUM LEVEL 140 MEQ/L (136-145)
[2020-11-18 06:22] LABS: ABG BASE EXCESS 3.6 (-2.0-2.0); ABG HCO3 31.7 MEQ/L (22.0-26.0); ABG O2 SATURATION 96.2 % (95.0-99.0); ABG PARTIAL PRESSURE O2 80.9 mmHg (75.0-100.0); ABG STANDARD HCO3 27.6 MEQ/L (22.0-26.0); ABG TOTAL CO2 33.6 MEQ/L (23.0-31.0); ABG pH (ARTERIAL) 7.325 UNITS (7.350-7.450)
[2020-11-18 06:26] LABS: ABG PARTIAL PRESSURE CO2 62.2 mmHg (35.0-45.0)
[2020-11-18] MEDS: HEPARIN SOD (PORCINE) 5000UNITS/ML 1ML VIAL/SYRINGE SC SCH ×3 (06:49→21:19)
--- NOTE | 2020-11-18 08:01 | REP ---
INDICATION: after chest tube placed COMPARISON: 11/17/2020 TECHNIQUE: PA and lateral. FINDINGS: Left-sided chest tube in stable position. Left-sided opacities suggesting diffuse airspace disease may be increased from prior examination along with small layering effusion. No obvious left pneumothorax. Right hemithorax is clear/stable. Cardiac silhouette is normal. Skeletal structures are intact. IMPRESSION: Left-sided airspace disease may be slightly increased from prior examination. Possible small residual layering left effusion. <Electronically signed by Keaton Stanley > 11/18/20 [id number]
[2020-11-18] MEDS: DOCUSATE SODIUM 100MG CAPSULE PO SCH ×2 (08:29→21:19)
[2020-11-18] MEDS: MOM 30ML SUSPENSION UDC PO SCH (08:29)
[2020-11-18] MEDS: NICOTINE 14 MG/24 HR TRANSDERMAL TD SCH (08:30)
[2020-11-18] MEDS: PANTOPRAZOLE 40MG TAB (PROTONIX) PO SCH (08:32)
[2020-11-18] MEDS: AZITHROMYCIN 250MG TABLET PO SCH (08:32)
[2020-11-18] MEDS: predniSONE 20 MG TAB PO SCH (08:32)
[2020-11-18] MEDS: FUROSEMIDE 40MG/4ML VIAL (J1940) IV SCH ×2 (08:34→11:26)
[2020-11-18] MEDS: PERCOCET 5MG/325MG TAB PO PRN (08:34)
--- NOTE | 2020-11-18 13:30 | IPN ---
PROGRESS NOTE DATE: 11/18/2020 SUBJECTIVE: Ms. Parra is doing fairly well today. Her pain is being controlled at the chest tube insertion site with narcotic analgesia along with Toradol. Her vital signs shows a T-max of 98.2 with a heart rate that ranges between 78 and 96 and is sinus rhythm, respiratory rate of 17 to 20 without the use of accessory muscles who is 90 to 95% saturated on 4 liters of nasal cannula and her blood pressure is ranging between 116/73 to 141/74. Her intake and output over the past 24 hours has been recorded as 1775 in and 980 out for a positivity of 795 ml. She has put out 155 ml out of the chest tube since the initial drainage. In the last 8 hours she has put out 30 ml and there is no air leak. Weight today is 62.4 kilos compared to 62.6 kilos yesterday. OBJECTIVE: Her lungs show equal breath sounds on either side but with rales and rhonchi in the left lower hemithorax. Percussion note is full to the diaphragm. Cardiac exam is without murmurs, clicks, gallops or rubs. I cannot feel her PMI. S1 and S2 are normal. Abdomen is soft, nontender. Bowel sounds are positive. There is no hepatomegaly. There is no CVA tenderness. Extremities show no pretibial edema. No calf tenderness. No differential swelling of the upper extremities. Skin is warm, dry and perfused without cyanosis or mottling including that of nailbeds and knees. Neck is supple. There is no jugular venous distention. No subcutaneous emphysema. Trachea is midline. Mouth shows the mucous membranes to be pink and moist. Lips and commissures with no thrush. Eyes shows the pupils equal and reactive. Extraocular motions intact. Sclera nonicteric. Neurologic: Cranial nerves II-XII intact, normal gross motor, and gross sensation intact. Gait is not tested. Psychiatric shows her to be awake, alert and oriented x3 with appropriate mood and affect and conversational. LABORATORY DATA: Her white count today is 6.8 with a hemoglobin and hematocrit of 15.5 and 50.3. She has a macrocytosis with an MCV of 101, platelet count is 289,000. Differential shows 95% neutrophils, 2% lymphocytes and 1% monocytes. There are no immature forms or toxic granulations. Her electrolytes were essentially normal except for an elevated total CO2 of 36. BUN and creatinine are 20 and 0.58 with a glucose of 179 and a calcium of 8.4. Magnesium is 2.0. Her pleural fluid has been returned with a pH of 7.74 with a glucose of 98 and an LDH of 121 with a corresponding serum LDH of 162 which makes this mildly exudative. Total protein is 4.5. There are 396 white cells, 94% of which are lymphocytes or monocytes and only 5% are PMNs. Cytology tech is suspicious for malignancy and it will be reviewed by pathology. Her chest x-ray today shows her lung fully expanded to the chest wall. The chest tube is in good place. There looks to be some post expansion atelectasis or pulmonary edema in the left lower lobe. I have looked at her chest film of 03/18/2016. She had a right lower lobe calcified nodule which looks all the world as a granuloma. I do not see any masses or nodules in the left lower lobe or the left upper lobe. On today's chest x-ray the right lower lobe I think I can see the right lower lobe granuloma still which has not changed in size. It could be an end on vessel, however. IMPRESSION: 1. Large left sided pleural effusion now drained. 2. Chronic hypercarbia. 3. Erythrocytosis versus dehydration. 4. Macrocytosis. 5. Tobacco abuse. 6. Hypertension. PLAN/DISCUSSION: While her hemoglobin is normal, her hematocrit is elevated. I think it is secondary to the calculation use of hematocrit using the MCV which his elevated with a macrocytosis. Her total CO2 is still 36 and she has a significant metabolic alkalosis as this pleural effusion has decreased her ventilation over a chronic longer period of time rather than an acute process. It will eventually correct itself. She has been ordered Lasix by the Hospitalist Service which I have discontinued as it will only make her metabolic alkalosis worse and increase her CO2 retention. I have a sinking feeling this is going to turner machine to be a malignant pleural effusion but I will await the pathologist looking at the effusion and the cell block. If this is, it would be Stage IV. I will obtain a CT scan on her tomorrow to look for the underlying lung parenchyma. I will do it with contrast. I will continue her on suction today. I have hinted to her that this may be indeed malignant and that it would be treated with systemic immuno or chemotherapy and/or radiation after genetic testing.
--- NOTE | 2020-11-18 14:37 | IPNPDOC ---
Subjective Date Seen The patient was seen on 11/18/20. Subjective Chief Complaint/HPI Patient was seen and examined at bedside this morning. She had no new complaints at this time reported significant improvement in her breathing following chest tube placement. Other systems 10 point review of system was negative except for what is noted in the HPI Objective Physical Examination Other physical findings General: Lying in bed, no acute distress Head/Neck/Throat: Trachea midline, mucous membranes moist Eyes: Sclera anicteric, no erythema or discharge appreciated bilaterally Thorax: Normal respiratory effort on room air, right lung field crackles appreciated basilarly, chest tube in place draining red fluid Cardiovascular: Normal rate, regular rhythm, normal S1, S2; no S3, S4, rubs/gallops/murmurs Abdomen: Bowel sounds present, soft/nontender/nondistended Genitourinary: No CVA tenderness, no Short in place Musculoskeletal: Moving all extremities, no edema Skin: Warm, dry Neurologic: AAOx3, speech fluent and goal-directed, no focal deficits, grossly intact Assessment /Plan Assessment #Acute on chronic respiratory failure with hypercapnia and hypoxia -Status post chest tube drainage for loculated left-sided pleural effusion on 11/17. Fluid analysis consistent with exudative process and differentials include malignant effusion and possibly parapneumonic effusion. -Considering her 10 pound unintentional weight loss and smoking history, malignancy is of concern. We will await for fluid cytology. -5-7 day course of antibiotics to cover for pneumonia. Obtain sputum cultures. -Support care with DuoNeb, suspicion for copd - she will require pfts as outpatient -Chest tube management as per CT team #Respiratory acidosis/metabolic alkalosis -Respiratory acidosis with metabolic compensation; chronic and secondary to her underlying lung pathology. #Erythrocytosis -Possibly 2/2 to her chronic respiratory failure vs dehydration. -If persistently elevated obtain erythropoietin levels. #Breast calcifications -She will need to follow-up in outpatient for mammography and ultrasound #DVT ppx -Heparin subq Plan/VTE VTE Prophylaxis Ordered?: Yes VS, I&O, 24H, Fishbone Vital Signs/I&O Vital Signs Date Time Temp Pulse Resp B/P (MAP) Pulse Ox O2 Delivery O2 Flow Rate FiO2 11/18/20 12:00 98.0 95 20 133/82 (99) 91 Nasal Cannula 4.0 11/17/20 06:00 40 I&O- Last 24 Hours up to 6 AM 11/18/20 05:59 Intake Total 2015 ml Output Total 800 ml Balance 1215 ml Laboratory Data 24H LABS Laboratory Tests 2 11/18/20 04:48: Immature Granulocyte % (Auto) 0.4, Neutrophils (%) (Auto) 95.6H, Lymphocytes (%) (Auto) 2.8L, Monocytes (%) (Auto) 0.9L, Eosinophils (%) (Auto) 0.0, Basophils (%) (Auto) 0.3, Neutrophils # (Auto) 6.5, Lymphocytes # (Auto) 0.2L, Monocytes # (Auto) 0.1, Eosinophils # (Auto) 0.0, Basophils # (Auto) 0.0, Nucleated Red Blood Cells % (auto) 0.0, Anion Gap 2L, Glomerular Filtration Rate > 60.0, Calcium Level 8.4L, Phosphorus Level 3.7, Magnesium Level 2.0 11/18/20 06:06: Blood Gas Bicarbonate Standard 27.6H, Arterial Blood pH 7.325L, Arterial Blood Partial Pressure CO2 62.2*H, Arterial Blood Partial Pressure O2 80.9, Arterial Blood Total CO2 33.6H, Arterial Blood HCO3 31.7H, Arterial Blood Base Excess 3.6H, Arterial Blood Oxygen Saturation 96.2 CBC/BMP Laboratory Tests 11/18/20 04:48 Microbiology Microbiology 11/17/20 Acid Fast Stain, Received Pending 11/17/20 Mycobacterial Culture, Received Pending 11/17/20 Fungal Smear, Received Pending 11/17/20 Fungal Culture, Received Pending 11/17/20 Gram Stain - Final, Resulted 11/17/20 Anaerobic Culture, Resulted Pending 11/17/20 Body Fluid Culture, Received Pending KELI ROJAS M.D. Nov 18, 2020 14:33
[2020-11-18] MEDS: cefTRIAXone SOD 1 GM in D5W MINI-BAG PLUS 50 ML IV SCH (15:45)
--- NOTE | 2020-11-18 18:51 | ECGEPIP ---
[facility] - ED Test Date: 2020-11-17 Pat Name: ALISE PENA Department: Room: [place] [address] Gender: Female Physician General Practice: ed : 1960 Requested By: JOSE Nance Order Number: [id number] Reading MD: Jyoti Moya Measurements Intervals [place] Rate: 94 P: 49 CO: 104 QRS: 7 QRSD: 78 T: 28 QT: 324 QTc: 405 Interpretive Statements Sinus rhythm with short CO Septal infarct , age undetermined No prior Electronically Signed on 11-18-2020 18:51:22 EDT by Jyoti Moya
[2020-11-19] VITALS: BP 126/64
[2020-11-19] MEDS: LEVALBUTEROL 1.25 MG/0.5 ML CONCENTRATE NEB NEB SCH ×4 (02:00→19:19)
[2020-11-19] MEDS: IPRATROPIUM 0.02% SOLN 0.5MG 2.5ML NEB INH SCH ×4 (02:00→19:19)
[2020-11-19 04:00] VITALS: BP 105/58
[2020-11-19] MEDS: KETOROLAC 30 MG/ML 1ML VIAL IV SCH ×3 (04:17→21:55)
[2020-11-19 05:19] LABS: BASO % 0.3 % (0.0-1.0); EOS % 0.3 % (0.0-3.0); HEMATOCRIT 46.8 % (36.0-47.0); HEMOGLOBIN 14.3 g/dl (12.0-15.5); LYMPH # 1.4 10^3/uL (1.5-5.0); LYMPH % 13.6 % (24.0-44.0); MEAN CORPUSCULAR HEMOGLOBIN 30.8 pg (27.0-33.0); MEAN CORPUSCULAR HGB CONC 30.6 g/dl (32.0-36.5); MEAN CORPUSCULAR VOLUME 100.9 fl (80.0-96.0); MONO # 0.9 10^3/uL (0.0-0.8); MONO % 8.3 % (2.0-8.0); NEUTROPHILS # 7.9 10^3/uL (1.5-8.5); NEUTROPHILS % 77.1 % (36.0-66.0); PLATELET COUNT, AUTOMATED 290 10^3/uL (150-450); RED BLOOD COUNT 4.64 10^6/uL (4.00-5.40); WHITE BLOOD COUNT 10.2 10^3/uL (4.0-10.0)
[2020-11-19] MEDS: HEPARIN SOD (PORCINE) 5000UNITS/ML 1ML VIAL/SYRINGE SC SCH ×3 (05:28→21:55)
[2020-11-19 05:39] LABS: BLOOD UREA NITROGEN 22 MG/DL (7-18); CALCIUM LEVEL 8.4 MG/DL (8.8-10.2); CARBON DIOXIDE LEVEL 38 MEQ/L (21-32); CHLORIDE LEVEL 102 MEQ/L (98-107); CREATININE FOR GFR 0.44 MG/DL (0.55-1.30); GLOMERULAR FILTRATION RATE > 60.0 (>45); GLUCOSE, FASTING 92 MG/DL (70-100); POTASSIUM SERUM 4.4 MEQ/L (3.5-5.1); SODIUM LEVEL 143 MEQ/L (136-145)
[2020-11-19 08:00] VITALS: BP 149/76
[2020-11-19] MEDS: predniSONE 20 MG TAB PO SCH (08:49)
[2020-11-19] MEDS: AZITHROMYCIN 250MG TABLET PO SCH (08:49)
[2020-11-19] MEDS: DOCUSATE SODIUM 100MG CAPSULE PO SCH ×2 (08:49→21:55)
[2020-11-19] MEDS: PANTOPRAZOLE 40MG TAB (PROTONIX) PO SCH (08:49)
[2020-11-19] MEDS: MOM 30ML SUSPENSION UDC PO SCH (08:50)
[2020-11-19] MEDS: NICOTINE 14 MG/24 HR TRANSDERMAL TD SCH (08:50)
[2020-11-19] MEDS: PERCOCET 5MG/325MG TAB PO PRN (08:52)
[2020-11-19] MEDS ORDERED: ISOVUE-370 76% 100ML VIAL As Ordered ONE (09:17)
--- NOTE | 2020-11-19 10:04 | REP ---
INDICATION: ?mass LLL COMPARISON: 11/17/2020 TECHNIQUE: Standard helical technique after the intravenous administration of 100 cc Isovue 370 FINDINGS: A large portion of the left pleural effusion has been evacuated by left-sided thoracotomy tube. Minimal residual persists. There is evidence of mediastinal adenopathy status quo. There is no evidence of hilar adenopathy. There is no change in the imaged upper abdomen or imaged osseous structures. Evaluation of the lung dominguez shows scattered left lung asymmetric densities with basilar predominance and a 1.8 cm sized irregular nodule in the inferior lingula. There is left lung field hypoexpansion accentuating all findings. Mild emphysematous changes are seen in the upper lung dominguez bilaterally. Dependent subsegmental atelectatic changes are suspected in the right lung base. IMPRESSION: 1. Unchanged adenopathy. 2. Nearly completely resolved left pleural effusion with thoracotomy tube. 3. Left basilar pneumonia versus patchy atelectasis or a combination of both correlate clinically with follow-up. 4. Nodular like asymmetric density in the inferior lingula as described above. This possibly represents a focal area of round atelectasis, however, close follow-up is recommended. Neoplasm cannot be ruled out. <Electronically signed by John Longoria > 11/19/20 1000
[2020-11-19 12:00] VITALS: BP 148/83
--- NOTE | 2020-11-19 14:05 | REP ---
INDICATION: after chest tube placed COMPARISON: 11/18/2020 TECHNIQUE: PA and lateral. FINDINGS: Left chest tube in stable position. Left-sided pleuroparenchymal changes including veiled opacity overlying the left hemithorax again noted. Findings suggest underlying airspace disease and small residual pleural fluid. No significant pneumothorax by radiographic evaluation. The right hemithorax is relatively clear. The mediastinum and cardiac silhouette are relatively normal. IMPRESSION: No significant change from prior examination. <Electronically signed by Keaton Stanley > 11/19/20 2026
[2020-11-19 16:00] VITALS: BP 151/75
[2020-11-19 20:00] VITALS: BP 150/77
[2020-11-20] VITALS: BP 132/66
[2020-11-20] MEDS: IPRATROPIUM 0.02% SOLN 0.5MG 2.5ML NEB INH SCH ×4 (02:37→19:48)
[2020-11-20] MEDS: LEVALBUTEROL 1.25 MG/0.5 ML CONCENTRATE NEB NEB SCH ×4 (02:37→19:48)
[2020-11-20 04:00] VITALS: BP 130/77
[2020-11-20] MEDS: HEPARIN SOD (PORCINE) 5000UNITS/ML 1ML VIAL/SYRINGE SC SCH ×3 (05:12→21:59)
[2020-11-20] MEDS: KETOROLAC 30 MG/ML 1ML VIAL IV SCH ×3 (05:13→19:58)
[2020-11-20 05:30] LABS: BASO % 0.3 % (0.0-1.0); EOS # 0.1 10^3/uL (0.0-0.5); EOS % 0.8 % (0.0-3.0); HEMATOCRIT 46.1 % (36.0-47.0); HEMOGLOBIN 14.3 g/dl (12.0-15.5); LYMPH # 1.5 10^3/uL (1.5-5.0); LYMPH % 16.7 % (24.0-44.0); MEAN CORPUSCULAR HEMOGLOBIN 31.2 pg (27.0-33.0); MEAN CORPUSCULAR VOLUME 100.4 fl (80.0-96.0); MONO # 0.8 10^3/uL (0.0-0.8); MONO % 9.2 % (2.0-8.0); NEUTROPHILS # 6.4 10^3/uL (1.5-8.5); NEUTROPHILS % 72.7 % (36.0-66.0); PLATELET COUNT, AUTOMATED 264 10^3/uL (150-450); RED BLOOD COUNT 4.59 10^6/uL (4.00-5.40); WHITE BLOOD COUNT 8.8 10^3/uL (4.0-10.0)
[2020-11-20 05:53] LABS: BLOOD UREA NITROGEN 22 MG/DL (7-18); CALCIUM LEVEL 8.7 MG/DL (8.8-10.2); CARBON DIOXIDE LEVEL 40 MEQ/L (21-32); CHLORIDE LEVEL 103 MEQ/L (98-107); CREATININE FOR GFR 0.51 MG/DL (0.55-1.30); GLOMERULAR FILTRATION RATE > 60.0 (>45); GLUCOSE, FASTING 85 MG/DL (70-100); POTASSIUM SERUM 5.9 MEQ/L (3.5-5.1); SODIUM LEVEL 142 MEQ/L (136-145)
[2020-11-20 08:10] VITALS: BP 145/78
--- NOTE | 2020-11-20 08:21 | REP ---
INDICATION: after chest tube placed COMPARISON: 11/19/2020 TECHNIQUE: PA and lateral. FINDINGS: Chest tube appears to have been removed. Left-sided pleuroparenchymal changes are again noted and similar to prior examination including suspected areas of atelectasis/airspace disease, pleural thickening and possible small residual pleural fluid. No obvious pneumothorax. Right hemithorax is relatively clear. Visualized portions of the mediastinum and cardiac silhouette are stable/normal.. IMPRESSION: Left-sided pleuroparenchymal changes similar to prior examination. Left chest tube has been removed. <Electronically signed by Keaton Stanley > 11/20/20 0818
[2020-11-20] MEDS: MOM 30ML SUSPENSION UDC PO SCH (08:31)
[2020-11-20] MEDS: DOCUSATE SODIUM 100MG CAPSULE PO SCH ×2 (08:31→19:58)
[2020-11-20] MEDS: AZITHROMYCIN 250MG TABLET PO SCH (08:31)
[2020-11-20] MEDS: PANTOPRAZOLE 40MG TAB (PROTONIX) PO SCH (08:31)
[2020-11-20] MEDS: NICOTINE 14 MG/24 HR TRANSDERMAL TD SCH (08:31)
--- NOTE | 2020-11-20 13:10 | IPNPDOC ---
Subjective Date Seen The patient was seen on 11/19/20. Subjective Chief Complaint/HPI Patient was seen and examined at bedside this morning. She reports significant improvement in her breathing following chest tube placement. She did complain of having a productive cough last night. She denied chest pain, abdominal pain, nausea, problems with urination and bowel movements. Objective Physical Examination Other physical findings General: Lying in bed, no acute distress Head/Neck/Throat: Trachea midline, mucous membranes moist Eyes: Sclera anicteric, no erythema or discharge appreciated bilaterally Thorax: On 3 L NC, right lung field crackles appreciated basilarly, chest tube in place draining red fluid Cardiovascular: Normal rate, regular rhythm, normal S1, S2; no S3, S4, rubs/gallops/murmurs Abdomen: Bowel sounds present, soft/nontender/nondistended Genitourinary: No CVA tenderness, no Short in place Musculoskeletal: Moving all extremities, no edema Skin: Warm, dry Neurologic: AAOx3, speech fluent and goal-directed, no focal deficits, grossly intact Assessment /Plan Assessment #Acute on chronic respiratory failure with hypercapnia and hypoxia -Status post chest tube drainage for loculated left-sided pleural effusion on 11/17. Fluid analysis consistent with exudative process and differentials include malignant effusion and possibly parapneumonic effusion. -Considering her 10 pound unintentional weight loss and smoking history, malignancy is of concern. We will await for fluid cytology. -5-7 day course of antibiotics to cover for pneumonia. Obtain sputum cultures. -Support care with DuoNeb, suspicion for copd - she will require pfts as outpatient -Chest tube management as per CT team #Respiratory acidosis/metabolic alkalosis -Respiratory acidosis with metabolic compensation; chronic and secondary to her underlying lung pathology. #Erythrocytosis -Resolved #Breast calcifications -She will need to follow-up in outpatient for mammography and ultrasound #DVT ppx -Heparin subq Plan/VTE VTE Prophylaxis Ordered?: Yes VS, I&O, 24H, Fishbone Vital Signs/I&O Vital Signs Date Time Temp Pulse Resp B/P (MAP) Pulse Ox O2 Delivery O2 Flow Rate FiO2 11/19/20 08:52 99.3 94 18 149/76 91 Nasal Cannula 4.0 11/17/20 06:00 40 I&O- Last 24 Hours up to 6 AM 11/19/20 06:00 Intake Total 1610 ml Output Total 1435 ml Balance 175 ml Laboratory Data 24H LABS Laboratory Tests 2 11/19/20 05:00: Immature Granulocyte % (Auto) 0.4, Neutrophils (%) (Auto) 77.1H, Lymphocytes (%) (Auto) 13.6L, Monocytes (%) (Auto) 8.3H, Eosinophils (%) (Auto) 0.3, Basophils (%) (Auto) 0.3, Neutrophils # (Auto) 7.9, Lymphocytes # (Auto) 1.4L, Monocytes # (Auto) 0.9H, Eosinophils # (Auto) 0.0, Basophils # (Auto) 0.0, Nucleated Red Blood Cells % (auto) 0.0, Anion Gap 3L, Glomerular Filtration Rate > 60.0, Calcium Level 8.4L CBC/BMP Laboratory Tests 11/19/20 05:00 Microbiology Microbiology 11/17/20 Acid Fast Stain, Received Pending 11/17/20 Mycobacterial Culture, Received Pending 11/17/20 Fungal Smear, Received Pending 11/17/20 Fungal Culture, Received Pending 11/17/20 Gram Stain - Final, Complete 11/17/20 Anaerobic Culture - Final, Complete 11/17/20 Body Fluid Culture, Received Pending KELI ROJAS M.D. Nov 19, 2020 11:55
--- NOTE | 2020-11-20 13:12 | IPNPDOC ---
Subjective Date Seen The patient was seen on 11/20/20. Subjective Chief Complaint/HPI Patient was seen and examined at bedside this morning. She reported having some shortness of breath with ambulation and a productive cough, which has been improving. She denied chest pain, abdominal pain, nausea, vomiting, and problems with urination and bowel movements. Objective Physical Examination Other physical findings General: Lying in bed, no acute distress Head/Neck/Throat: Trachea midline, mucous membranes moist Eyes: Sclera anicteric, no erythema or discharge appreciated bilaterally Thorax: On 3L NC, right lung field crackles appreciated basilarly, chest tube in place draining red fluid Cardiovascular: Normal rate, regular rhythm, normal S1, S2; no S3, S4, rubs/gallops/murmurs Abdomen: Bowel sounds present, soft/nontender/nondistended Genitourinary: No CVA tenderness, no Short in place Musculoskeletal: Moving all extremities, no edema Skin: Warm, dry Neurologic: AAOx3, speech fluent and goal-directed, no focal deficits, grossly intact Assessment /Plan Assessment #Acute on chronic respiratory failure with hypercapnia and hypoxia -Status post chest tube drainage for loculated left-sided pleural effusion on 11/17, this was removed on 11/18. -Fluid analysis consistent with exudative process and cytology was positive for adenocarcinoma. Will speak to oncology team for ongoing care as an outpatient -Did not pass 6-minute walk test, she will be set up for home O2. -Complete 5 days of antibiotics. #Respiratory acidosis/metabolic alkalosis -Respiratory acidosis with metabolic compensation; chronic and secondary to her underlying lung pathology. #Erythrocytosis -Resolved. This was likely due to dehydration. #Breast calcifications -She will need to follow-up in outpatient for mammography and ultrasound #DVT ppx -Heparin subq Plan/VTE VTE Prophylaxis Ordered?: Yes VS, I&O, 24H, Fishbone Vital Signs/I&O Vital Signs Date Time Temp Pulse Resp B/P (MAP) Pulse Ox O2 Delivery O2 Flow Rate FiO2 11/20/20 10:00 76 91 Nasal Cannula 2.0 11/20/20 08:10 98.2 20 145/78 (100) 11/19/20 09:22 40 I&O- Last 24 Hours up to 6 AM 11/20/20 05:59 Intake Total 1850 ml Output Total 1340 ml Balance 510 ml Laboratory Data 24H LABS Laboratory Tests 2 11/20/20 04:56: Immature Granulocyte % (Auto) 0.3, Neutrophils (%) (Auto) 72.7H, Lymphocytes (%) (Auto) 16.7L, Monocytes (%) (Auto) 9.2H, Eosinophils (%) (Auto) 0.8, Basophils (%) (Auto) 0.3, Neutrophils # (Auto) 6.4, Lymphocytes # (Auto) 1.5, Monocytes # (Auto) 0.8, Eosinophils # (Auto) 0.1, Basophils # (Auto) 0.0, Nucleated Red Blood Cells % (auto) 0.0, Anion Gap , Glomerular Filtration Rate > 60.0, Calcium Level 8.7L CBC/BMP Laboratory Tests 11/20/20 04:56 11/20/20 06:29 Microbiology Microbiology 11/17/20 Acid Fast Stain, Received Pending 11/17/20 Mycobacterial Culture, Received Pending 11/17/20 Fungal Smear, Received Pending 11/17/20 Fungal Culture, Received Pending 11/17/20 Gram Stain - Final, Complete 11/17/20 Anaerobic Culture - Final, Complete 11/17/20 Body Fluid Culture, Received Pending KELI ROJAS M.D. Nov 20, 2020 13:09
[2020-11-20 16:35] VITALS: BP 139/69
[2020-11-20 22:00] VITALS: BP 140/70
[2020-11-21] VITALS: BP_SYST 134; BP_SYST 149; BP_DIAS 68; BP_DIAS 83
[2020-11-21] MEDS: IPRATROPIUM 0.02% SOLN 0.5MG 2.5ML NEB INH SCH ×2 (02:00→07:07)
[2020-11-21] MEDS: LEVALBUTEROL 1.25 MG/0.5 ML CONCENTRATE NEB NEB SCH ×2 (02:00→07:07)
[2020-11-21 04:00] VITALS: BP 139/83
[2020-11-21] MEDS: KETOROLAC 30 MG/ML 1ML VIAL IV SCH ×2 (04:28→12:00)
[2020-11-21] MEDS: HEPARIN SOD (PORCINE) 5000UNITS/ML 1ML VIAL/SYRINGE SC SCH (05:43)
[2020-11-21 06:16] LABS: BASO % 0.6 % (0.0-1.0); EOS # 0.2 10^3/uL (0.0-0.5); EOS % 2.7 % (0.0-3.0); HEMATOCRIT 45.2 % (36.0-47.0); HEMOGLOBIN 13.9 g/dl (12.0-15.5); LYMPH # 1.5 10^3/uL (1.5-5.0); LYMPH % 22.6 % (24.0-44.0); MEAN CORPUSCULAR HEMOGLOBIN 30.5 pg (27.0-33.0); MEAN CORPUSCULAR HGB CONC 30.8 g/dl (32.0-36.5); MEAN CORPUSCULAR VOLUME 99.3 fl (80.0-96.0); MONO # 0.6 10^3/uL (0.0-0.8); MONO % 9.3 % (2.0-8.0); NEUTROPHILS # 4.3 10^3/uL (1.5-8.5); NEUTROPHILS % 64.6 % (36.0-66.0); PLATELET COUNT, AUTOMATED 260 10^3/uL (150-450); RED BLOOD COUNT 4.55 10^6/uL (4.00-5.40); WHITE BLOOD COUNT 6.6 10^3/uL (4.0-10.0)
[2020-11-21 06:37] LABS: BLOOD UREA NITROGEN 18 MG/DL (7-18); CALCIUM LEVEL 8.8 MG/DL (8.8-10.2); CARBON DIOXIDE LEVEL 39 MEQ/L (21-32); CHLORIDE LEVEL 102 MEQ/L (98-107); CREATININE FOR GFR 0.32 MG/DL (0.55-1.30); GLOMERULAR FILTRATION RATE > 60.0 (>45); GLUCOSE, FASTING 71 MG/DL (70-100); POTASSIUM SERUM 4.7 MEQ/L (3.5-5.1); SODIUM LEVEL 142 MEQ/L (136-145)
[2020-11-21 08:00] VITALS: BP 131/78
[2020-11-21] MEDS: NICOTINE 14 MG/24 HR TRANSDERMAL TD SCH (09:00)
[2020-11-21] MEDS: MOM 30ML SUSPENSION UDC PO SCH (09:00)
[2020-11-21] MEDS: PANTOPRAZOLE 40MG TAB (PROTONIX) PO SCH (09:00)
[2020-11-21] MEDS: AZITHROMYCIN 250MG TABLET PO SCH (09:55)
[2020-11-21] MEDS: DOCUSATE SODIUM 100MG CAPSULE PO SCH (09:56)
[2020-11-21] MEDS ORDERED: PROAAER10 INH (11:10)
[2020-11-21] MEDS ORDERED: SPIR1CAP INH (11:10)
--- NOTE | 2020-11-22 10:47 | IPN ---
PROGRESS NOTE DATE: 11/20/2020 SUBJECTIVE: Ms. Parra is feeling fairly well today. She is still on 4 liters of nasal canula. I have asked the nurses to start to wean her. She is pain free as the chest tube was removed yesterday. Her vital signs show a T-max of 98.8 with a heart rate that ranges between 76 and 87 with sinus rhythm, respiratory rate of 28 to 22 without the use of accessory muscles, who is 98 to 95% saturated on 4 liters nasal cannula. Blood pressure is ranging between 145/78 to 130/77. Her intake and output over the past 24 hours has been recorded as 1970 in and 1535 out for positivity of 435 mL. Chest tube was removed yesterday. She weighs 63 kg today compared to 61.1 kg yesterday. OBJECTIVE: On physical examination, she has rales and rhonchi the left hemithorax. E:A egophony has resolved. Percussion is full to the diaphragm. Cardiac examination is without murmurs, clicks, gallops or rubs. I cannot feel her PMI. S1, S2 are normal. Her abdomen is soft and nontender. Bowel sounds are positive. There is hepatomegaly. No costovertebral angle (CVA) tenderness. Extremities showed no pretibial edema. No calf tenderness. No differential swelling of the upper extremities. Skin is warm, dry and perfuse. No cyanosis or mottling including nailbeds and knees. Neck is supple. There is no jugular venous distention. No subcutaneous emphysema. Trachea is midline. Mouth shows mucous membranes to be pink and moist. Lips and commissures: No lesions or thrush. Eyes: Show pupils equal and reactive. Extraocular motions are intact. Sclerae nonicteric. Neuro system: CN II-XII intact with gross motor intact. Gait is not tested. Psychiatric: Alert, awake and oriented times 3 with appropriate mood and affect and conversational. LABORATORY DATA: Her white count today is down to 8.8 with a hemoglobin and hematocrit of 4.3 and 46.1 respectively. Platelet count is 264 and differential shows 72% neutrophils, 16% lymphocytes and 9% monocytes. No immature forms or toxic granulosis. Her electrolytes earlier this morning at 4:56 showed sodium 142 and potassium 5.9. The potassium is repeated at 6:30 and it came back 4.5. Her BUN and creatinine are 22 and 0.5.1 with a total Co2 of 40. Her chest x-ray today shows her lungs fully expanded to the chest wall. There is still some post expansion of atelectasis and/or pleural edema in the left lower hemithorax. Pathology and her markers have come back as adenocarcinoma. This looks to be a lung primary, positive for TTF1. Marker studies are pending. IMPRESSION: 1. Large malignant left-sided effusion now drained. 2. Chronic hypercarbia. 3. Macrocytosis. 4. Tobacco abuse. 5. Hypertension. 6. Left upper lobe lung mass. PLAN/DISCUSSION: I see no reason why she can't home today. I have asked the nurses to wean her oxygen. If we can't wean her oxygen fully, we will send her home on home O2. Her trajectory of her blood gases shows that she is improving her Co2 retention and compensated metabolic alkalosis. I have asked the hospitalist to discharge her and set up and to arrange for more O2 should she need it. There is no reason to keep her in the hospital at this point in time. She will follow up with Pulmonary next week in my absence. She will have complete staging workup on function test and a referral to oncology. This is stage IV disease by definition and there is no surgical option. Hopefully, we can get oncology to start systemic therapy. So, it is obvious she needs PleurX catheter and chronic drainage.
--- NOTE | 2020-12-02 12:23 | DS.PDOC ---
Discharge Summary General Date of Admission Nov 16, 2020 at 23:23 Date of Discharge 11/21/20 Discharge Summary PROCEDURES PERFORMED DURING STAY: [None]. DISCHARGE DIAGNOSES: 1. Acute respiratory failure with hypoxia 2. Adenocarcinoma 3. Chronic respiratory failure COMPLICATIONS/CHIEF COMPLAINT: Pleural Effuison. HOSPITAL COURSE: Ms. Parra, is a 60-year-old female with a past medical history of nicotine use disorder presented to the emergency room department has right medical outoos p rogressive and worsening shortness of breath. She reported experiencing this for the last several months, however, on the day of admission became intolerable. She also endorsed a prolonged smoking history and unintentional 10 pound weight loss. In the emergency room department, she was noted to be hypoxic with a CT angiography noting a large loculated left-sided pleural effusion. She required BiPAP support and monitoring in the intensive care unit. The cardiothoracic team was consulted and a chest tube was placed. This improved her symptoms significantly. The fluid analysis was consistent with an exudative process. Therefore she was started on antibiotics empirically until further studies from fluid resulted. Pathology was positive for malignancy, consistent with adenocarcinoma. Genetic testing was pending. She was made aware of fluid study results. Emotional support was provided. She was given information about following up with oncology. Oncology was also made aware of the patient. Patient was asked to call the oncology clinic if she did not receive a phone call. She was explained further imaging for staging may be required for appropriate treatment plan. She was also evaluated by the pulmonology team. It was also felt she may have underlying COPD (although she has never had pulmonary function tests done). Therefore, she was apparently started on Spiriva as well as albuterol upon discharge. She must follow-up with the pulmonary clinic for appropriate pulmo nary function test to be done. At the time of discharge, patient underwent a 6-minute walk test qualified for oxygen. This was set up for her. managed services sales consultant worked with patient, and home services will also be provided. She reported not having a family physician. Therefore she was given a list of family physician that she can follow-up within 5 days. As well, the oncology within 5 days. She is also asked to follow-up with the cardiothoracic team in 10 to 14 days. DISCHARGE MEDICATIONS: Please see below. ALLERGIES: Please see below. PHYSICAL EXAMINATION ON DISCHARGE: VITAL SIGNS: Please see below. General: Lying in bed, no acute distress Head/Neck/Throat: Trachea midline, mucous membranes moist Eyes: Sclera anicteric, no erythema or discharge appreciated bilaterally Thorax: On 2 L nasal cannula, no wheezes rhonchi appreciated Cardiovascular: Normal rate, regular rhythm, normal S1, S2 Abdomen: Bowel sounds present, soft/nontender/nondistended Genitourinary: No CVA tenderness, no Short in place Musculoskeletal: Moving all extremities, no edema Skin: Warm, dry Neurologic: AAOx3, speech fluent and goal-directed, no focal deficits, grossly intact LABORATORY DATA: Please see below. IMAGING: CT Chest with contrast A large portion of the left pleural effusion has been evacuated by left-sided thoracotomy tube. Minimal residual persists. There is evidence of mediastinal adenopathy status quo. There is no evidence of hilar adenopathy. There is no change in the imaged upper abdomen or imaged osseous structures. Evaluation of the lung dominguez shows scattered left lung asymmetric densities with basilar predominance and a 1.8 cm sized irregular nodule in the inferior lingula. There is left lung field hypoexpansion accentuating all findings. Mild emphysematous changes are seen in the upper lung dominguez bilaterally. Dependent subsegmental atelectatic changes are suspected in the right lung base. IMPRESSION: 1. Unchanged adenopathy. 2. Nearly completely resolved left pleural effusion with thoracotomy tube. 3. Left basilar pneumonia versus patchy atelectasis or a combination of both correlate clinically with follow-up. 4. Nodular like asymmetric density in the inferior lingula as described above. This possibly represents a focal area of round atelectasis, however, close follow-up is recommended. Neoplasm cannot be ruled out. PROGNOSIS: Fair ACTIVITY: As tolerated DIET: As tolerated DISCHARGE INSTRUCTIONS: Patient explained of appropriate follow-ups required DISCHARGE CONDITION: [Stable]. TIME SPENT ON DISCHARGE: 30 minutes. Vital Signs/I&Os Vital Signs Date Time Temp Pulse Resp B/P (MAP) Pulse Ox O2 Delivery O2 Flow Rate FiO2 11/21/20 08:00 2.0 11/21/20 08:00 97.9 75 18 131/78 (95) 92 Nasal Cannula 11/19/20 09:22 40 I&O- Last 24 Hours up to 6 AM 11/21/20 06:00 Intake Total 1960 ml Output Total 1225 ml Balance 735 ml Laboratory Data Labs 24H Laboratory Tests 2 11/21/20 05:28: Immature Granulocyte % (Auto) 0.2, Neutrophils (%) (Auto) 64.6, Lymphocytes (%) (Auto) 22.6L, Monocytes (%) (Auto) 9.3H, Eosinophils (%) (Auto) 2.7, Basophils (%) (Auto) 0.6, Neutrophils # (Auto) 4.3, Lymphocytes # (Auto) 1.5, Monocytes # (Auto) 0.6, Eosinophils # (Auto) 0.2, Basophils # (Auto) 0.0, Nucleated Red Blood Cells % (auto) 0.0, Anion Gap 1L, Glomerular Filtration Rate > 60.0, Calcium Level 8.8, Phosphorus Level 4.0, Magnesium Level 2.0 CBC/BMP Laboratory Tests 11/21/20 05:28 Microbiology Microbiology 11/17/20 Acid Fast Stain, Received Pending 11/17/20 Mycobacterial Culture, Received Pending 11/17/20 Fungal Smear, Received Pending 11/17/20 Fungal Culture, Received Pending 11/17/20 Gram Stain - Final, Complete 11/17/20 Anaerobic Culture - Final, Complete 11/17/20 Body Fluid Culture - Final, Complete Enterococcus Faecalis Discharge Medications Scheduled Multivitamins (Thera M Plus Tablet) 1 Each Tablet, 1 TAB PO DAILY, (Reported) Tiotropium [place] (Spiriva) 18 Mcg Cap.w.dev, 1 CAP INH DAILY Scheduled PRN Albuterol Sulfate (Proair Hfa) 8.5 Gm Hfa.aer.ad, 2 PUFF INH Q4-6HP PRN for wheezing Allergies Coded Allergies: No Known Allergies (Unverified , 07/07/08) KELI ROJAS M.D. Nov 21, 2020 11:18
== END 2020-11-21 13:50 | disposition home health service (06) | DRG 189 ==
LOC: M ED 23:22 → M ED INP 23:23 → M PCU 11-17 05:22 → M ICU 11-17 21:59 → M PCU 11-20 21:35
PROVIDERS: ADMIT Internal Medicine; ATTEND Internal Medicine
PROC: 0W9830Z Drainage of Chest Wall with Drainage Device, Percutaneous Approach (ICD-10-PCS; principal; 2020-11-17)
DX: J96.21 Acute and chronic respiratory failure with hypoxia (principal); J90 Pleural effusion, not elsewhere classified; E87.2 Acidosis; C34.90 Malignant neoplasm of unspecified part of unspecified bronchus or lung; J96.22 Acute and chronic respiratory failure with hypercapnia; F17.210 Nicotine dependence, cigarettes, uncomplicated; R91.8 Other nonspecific abnormal finding of lung field; D75.1 Secondary polycythemia; Z20.822 Contact with and (suspected) exposure to COVID-19; D75.89 Other specified diseases of blood and blood-forming organs; Z87.891 Personal history of nicotine dependence

== ENCOUNTER → 2020-11-16 | Outpatient (CLI) | payer OTHER ==
[~2020-11-16] MED LIST: VITMTA PO
[2020-11-16 21:38] LABS: BASO # 0.1 10^3/uL (0.0-0.2); BASO % 0.6 % (0.0-1.0); EOS # 0.1 10^3/uL (0.0-0.5); HEMOGLOBIN 17.3 g/dl (12.0-15.5); LYMPH # 1.2 10^3/uL (1.5-5.0); LYMPH % 15.1 % (24.0-44.0); MEAN CORPUSCULAR HEMOGLOBIN 30.8 pg (27.0-33.0); MEAN CORPUSCULAR HGB CONC 30.9 g/dl (32.0-36.5); MEAN CORPUSCULAR VOLUME 99.8 fl (80.0-96.0); MONO # 0.8 10^3/uL (0.0-0.8); MONO % 9.9 % (2.0-8.0); NEUTROPHILS # 5.9 10^3/uL (1.5-8.5); PLATELET COUNT, AUTOMATED 331 10^3/uL (150-450); RED BLOOD COUNT 5.61 10^6/uL (4.00-5.40); WHITE BLOOD COUNT 8.1 10^3/uL (4.0-10.0)
[2020-11-16 21:59] LABS: ERYTHROCYTE SEDIMENTATION RATE 8 mm/hr (0-30)
[2020-11-16 22:16] LABS: ALT/SGPT 26 U/L (12-78); BLOOD UREA NITROGEN 19 MG/DL (7-18); CALCIUM LEVEL 8.8 MG/DL (8.8-10.2); CARBON DIOXIDE LEVEL 37 MEQ/L (21-32); CHLORIDE LEVEL 102 MEQ/L (98-107); CREATININE FOR GFR 0.56 MG/DL (0.55-1.30); GLOMERULAR FILTRATION RATE > 60.0 (>45); GLUCOSE, FASTING 97 MG/DL (70-100); POTASSIUM SERUM 5.1 MEQ/L (3.5-5.1); SODIUM LEVEL 141 MEQ/L (136-145)
[2020-11-16 22:17] LABS: ALBUMIN 2.9 GM/DL (3.2-5.2); BILIRUBIN,TOTAL 0.4 MG/DL (0.2-1.0); NT-PRO BNP 340 PG/ML (<125); TOTAL PROTEIN 7.5 GM/DL (6.4-8.2)
--- NOTE | 2020-11-17 09:57 | REP ---
INDICATION: SHORTNESS OF BREATH,OTHER FATIGUE LABS FIRST COMPARISON: 03/18/2016 TECHNIQUE: PA and lateral. FINDINGS: There is a large left pleural effusion with associated left lower lobe airspace disease. Left perihilar opacity cannot be excluded. The right hemithorax is relatively clear. No obvious pneumothorax. Mediastinum and cardiac silhouette are incompletely evaluated due to overlying left-sided opacities. Skeletal structures are intact. IMPRESSION: Large suspected left pleural effusion and associated left-sided airspace disease. <Electronically signed by Keaton Stanley > 11/17/20 [id number]
== END ==
LOC: M LAB 20:53
PROVIDERS: ATTEND Physician Assistant
DX: J84.10 Pulmonary fibrosis, unspecified (principal); J91.8 Pleural effusion in other conditions classified elsewhere; R53.83 Other fatigue; R06.02 Shortness of breath

== ENCOUNTER → 2020-11-27 | Outpatient (CLI) | payer OTHER ==
[~2020-11-27] MED LIST changes: +PROAAER10 INH; +PROHANCE 279.3MG/ML 15ML VIAL As Ordered ONE; +SPIR1CAP INH
--- NOTE | 2020-11-27 16:35 | REP ---
INDICATION: LUNG CA. COMPARISON: No comparison brain imaging. TECHNIQUE: Axial and sagittal imaging planes are utilized for T1 and T2-weighted scans. Sequences include spin-echo, fast spin echo, FLAIR, and diffusion weighted sequences. 12 mL of intravenous ProHance is administered and post gadolinium enhanced axial, coronal and sagittal T1 images are acquired. FINDINGS: No bony calvarial lesion is seen. Craniocervical junction upper cervical cord are normal in appearance. There is no MR evidence of significant paranasal sinus disease. No intraorbital abnormality is appreciated. There is no evidence of acute infarction, intracranial hemorrhage, or mass. There are moderate multifocal T2 hyperintense areas in the subcortical and periventricular white matter of the frontal parietal and temporal lobes bilaterally consistent with small vessel atherosclerotic changes. Postcontrast enhanced study demonstrates enhancement in normal vasculature. No abnormal contrast enhancement is appreciated. Diffusion-weighted scans show no evidence of restricted diffusion to suggest acute ischemia. IMPRESSION: There is no evidence of intracranial metastatic disease. <Electronically signed by Paul Jordan > 11/27/20 0175
== END ==
LOC: M RAD 14:35
PROVIDERS: ATTEND Specialist
DX: C34.90 Malignant neoplasm of unspecified part of unspecified bronchus or lung (principal)

== ENCOUNTER → 2020-12-07 | Outpatient (CLI) | payer OTHER ==
[~2020-12-07] MED LIST changes: -PROHANCE 279.3MG/ML 15ML VIAL As Ordered ONE
--- NOTE | 2020-12-07 15:26 | REP ---
INDICATION: STAGING LEFT LUNG CANCER C34.82. COMPARISON: There are no prior PET CTs for comparison. Previous CT examinations of the chest 11/19/2020 and 11/17/2020 reviewed. TECHNIQUE: After the intravenous administration of 8.65 mCi of FDG 18 triplane whole-body PET-CT was performed from the skull base to the mid thigh. FINDINGS: There is patchy irregular pleural thickening throughout the left lung pleura with SUV values ranging from 2.5 to 3.4 maximally. Borderline and mildly enlarged mediastinal and left hilar lymph nodes are identified with mediastinal hypermetabolic activity seen in the aortic pulmonary window with a maximal SUV value of 3.05. This particular lymph node measures 1.4 by 1.1 cm. Multiple foci of hypermetabolic activity seen throughout the spine. I have not been given history of chemotherapy. This could be secondary to chemo thigh reactive change. Early metastatic foci cannot be ruled. No other areas of abnormal hypermetabolic activity are seen in the neck, chest, abdomen, or pelvis. IMPRESSION: Abnormal left hemithoracic hypermetabolic activity as described above consistent with pleural metastasis. Adenopathy as described above. There is skeletal uptake as described above. <Electronically signed by John Longoria > 12/07/20 [id number]
== END ==
LOC: M PLARAD 11:03
PROVIDERS: ATTEND Specialist
DX: C34.82 Malignant neoplasm of overlapping sites of left bronchus and lung (principal); R59.0 Localized enlarged lymph nodes
CPT/HCPCS: 78815; A9552

== ENCOUNTER → 2021-03-25 | Outpatient (CLI) | payer OTHER ==
[~2021-03-25] MED LIST changes: +AMLO1TAB24; +ISOVUE-370 76% 100ML VIAL As Ordered ONE
== END ==
LOC: M RAD 14:58
PROVIDERS: ATTEND Specialist
DX: C34.90 Malignant neoplasm of unspecified part of unspecified bronchus or lung (principal)
CPT/HCPCS: 71260; Q9967

== ENCOUNTER → 2021-07-09 | Outpatient (CLI) | payer OTHER ==
[~2021-07-09] MED LIST changes: +DECA4TAB PO; +FLUT1BLS4; +FOLI1TAB11 PO; +INCR1INH; +ONDA-84 PO; +PROC10TA5 PO
== END ==
LOC: M RAD 11:03
PROVIDERS: ATTEND Specialist
DX: C34.90 Malignant neoplasm of unspecified part of unspecified bronchus or lung (principal); R91.8 Other nonspecific abnormal finding of lung field
CPT/HCPCS: 71260; Q9967

== ENCOUNTER → 2021-07-28 | Outpatient (CLI) | payer OTHER ==
[~2021-07-28] MED LIST changes: -ISOVUE-370 76% 100ML VIAL As Ordered ONE
== END ==
LOC: M WHC 13:47
PROVIDERS: ATTEND Family Medicine
DX: Z12.31 Encounter for screening mammogram for malignant neoplasm of breast (principal)

== ENCOUNTER → 2021-09-18 | Outpatient (REF) | payer OTHER ==
[2021-09-18 14:20] LABS: URINE TOTAL PROTEIN 25.7 MG/DL (0-12)
== END ==
LOC: M LAB REF 13:40
PROVIDERS: ATTEND Specialist
DX: C34.92 Malignant neoplasm of unspecified part of left bronchus or lung (principal)

== ENCOUNTER → 2021-10-06 | Outpatient (CLI) | payer OTHER ==
[~2021-10-06] MED LIST changes: +ISOVUE-370 76% 100ML VIAL As Ordered ONE
== END ==
LOC: M RAD 13:54
PROVIDERS: ATTEND Nurse Practitioner
DX: C34.90 Malignant neoplasm of unspecified part of unspecified bronchus or lung (principal); J43.9 Emphysema, unspecified
CPT/HCPCS: 71260; Q9967

== ENCOUNTER → 2021-12-27 | Outpatient (REF) | payer OTHER ==
[~2021-12-27] MED LIST changes: +DEXA4TA; +DEXA4TA PO; -ISOVUE-370 76% 100ML VIAL As Ordered ONE
[2021-12-27 15:14] LABS: URINE TOTAL PROTEIN 9.5 MG/DL (0-12)
[2021-12-27 15:25] LABS: TOTAL PROTEIN 24 HOUR URINE 180.5 MG/24HR (50-150)
== END ==
LOC: M LAB REF 10:08
PROVIDERS: ATTEND Specialist
DX: C34.90 Malignant neoplasm of unspecified part of unspecified bronchus or lung (principal)

== ENCOUNTER → 2022-01-10 | Outpatient (CLI) | payer OTHER ==
[~2022-01-10] MED LIST changes: +ISOVUE-370 76% 100ML VIAL As Ordered ONE
== END ==
LOC: M RAD 08:46
PROVIDERS: ATTEND Specialist
DX: C34.90 Malignant neoplasm of unspecified part of unspecified bronchus or lung (principal)
CPT/HCPCS: 71260; Q9967

== ENCOUNTER → 2022-04-18 | Outpatient (CLI) | payer OTHER ==
[~2022-04-18] MED LIST changes: +AZIT-12; +PRED20TA
== END ==
LOC: M RAD 08:39
PROVIDERS: ATTEND Specialist
DX: C34.90 Malignant neoplasm of unspecified part of unspecified bronchus or lung (principal)

== ENCOUNTER → 2022-08-03 | Outpatient (CLI) | payer OTHER ==
[~2022-08-03] MED LIST changes: -ISOVUE-370 76% 100ML VIAL As Ordered ONE
== END ==
LOC: M WHC 12:42
PROVIDERS: ATTEND Family Medicine
DX: Z12.31 Encounter for screening mammogram for malignant neoplasm of breast (principal); Z78.0 Asymptomatic menopausal state; Z92.21 Personal history of antineoplastic chemotherapy; Z85.89 Personal history of malignant neoplasm of other organs and systems

== ENCOUNTER → 2022-08-17 | Outpatient (CLI) | payer OTHER ==
[~2022-08-17] MED LIST changes: +ISOVUE-370 76% 100ML VIAL As Ordered ONE
== END ==
LOC: M RAD 13:51
PROVIDERS: ATTEND Nurse Practitioner
DX: C34.90 Malignant neoplasm of unspecified part of unspecified bronchus or lung (principal); I70.0 Atherosclerosis of aorta; I25.10 Atherosclerotic heart disease of native coronary artery without angina pectoris
CPT/HCPCS: 71260; Q9967

== ENCOUNTER → 2022-11-21 | Outpatient (CLI) | payer OTHER ==
[~2022-11-21] MED LIST changes: +ADV100INH INH; +ALBU8.5H INH; -AMLO1TAB24; +AMLO1TAB24 PO; +AMOX500C PO; -INCR1INH; +INCR1INH INH
== END ==
LOC: M RAD 07:16
PROVIDERS: ATTEND Nurse Practitioner
DX: C34.90 Malignant neoplasm of unspecified part of unspecified bronchus or lung (principal); I70.0 Atherosclerosis of aorta; I25.10 Atherosclerotic heart disease of native coronary artery without angina pectoris; M51.34 Other intervertebral disc degeneration, thoracic region; J43.2 Centrilobular emphysema; J84.10 Pulmonary fibrosis, unspecified; J98.4 Other disorders of lung
CPT/HCPCS: 71260; Q9967

== ENCOUNTER → 2022-12-16 | Outpatient (REF) | payer OTHER, MEDICAID ==
[~2022-12-16] MED LIST changes: +AMLO1TAB25; +AMOX875T2 PO; -ISOVUE-370 76% 100ML VIAL As Ordered ONE; +[UNRECOGNIZED DRUG - CODE] IM
== END ==
LOC: M SFHCWAGY 15:42
PROVIDERS: ATTEND Nurse Practitioner Family
DX: Z12.4 Encounter for screening for malignant neoplasm of cervix (principal); N95.2 Postmenopausal atrophic vaginitis

== ENCOUNTER → 2023-02-16 | Outpatient (CLI) | payer OTHER ==
[~2023-02-16] MED LIST changes: +ISOVUE-370 76% 100ML VIAL As Ordered ONE
== END ==
LOC: M RAD 12:39
PROVIDERS: ATTEND Nurse Practitioner
DX: C34.90 Malignant neoplasm of unspecified part of unspecified bronchus or lung (principal)
CPT/HCPCS: 71260; Q9967

== ENCOUNTER → 2023-06-05 | Outpatient (CLI) | payer MEDICAID, MEDICARE, OTHER ==
[~2023-06-05] MED LIST changes: +THERTAB52 PO
== END ==
LOC: M RAD 07:39
PROVIDERS: ATTEND Specialist
DX: C34.90 Malignant neoplasm of unspecified part of unspecified bronchus or lung (principal); I25.10 Atherosclerotic heart disease of native coronary artery without angina pectoris; J43.2 Centrilobular emphysema; J84.10 Pulmonary fibrosis, unspecified; K76.0 Fatty (change of) liver, not elsewhere classified
CPT/HCPCS: 71260; Q9967

== ENCOUNTER → 2023-08-07 | Outpatient (CLI) | payer MEDICARE, OTHER ==
[~2023-08-07] MED LIST changes: -ISOVUE-370 76% 100ML VIAL As Ordered ONE
== END ==
LOC: M WHC 13:10
PROVIDERS: ATTEND Family Medicine
DX: Z12.31 Encounter for screening mammogram for malignant neoplasm of breast (principal); R92.323 Mammographic fibroglandular density, bilateral breasts

== ENCOUNTER → 2023-09-06 | Outpatient (CLI) | payer OTHER ==
[~2023-09-06] MED LIST changes: +ISOVUE-370 76% 100ML VIAL As Ordered ONE
== END ==
LOC: M RAD 12:41
PROVIDERS: ATTEND Specialist
DX: C34.90 Malignant neoplasm of unspecified part of unspecified bronchus or lung (principal); J43.9 Emphysema, unspecified; J47.9 Bronchiectasis, uncomplicated
CPT/HCPCS: 71260; Q9967

== ENCOUNTER → 2023-12-25 | Outpatient (CLI) | payer MEDICAID, MEDICARE ==
[~2023-12-25] MED LIST changes: -AMLO1TAB25; +AMLO1TAB25 PO; +LASI20TA3 PO; +MULTTAB61 PO; +PERI12LIQ MT; +POTA1TAB24 PO
== END ==
LOC: M RAD 12:58
PROVIDERS: ATTEND Specialist
DX: C34.90 Malignant neoplasm of unspecified part of unspecified bronchus or lung (principal)

== ENCOUNTER 2023-12-26 16:03 | Inpatient (IN) | payer MEDICARE ==
[~2023-12-26] VITALS: Ht 162.6 cm; Wt 76.5 kg
[~2023-12-26 16:03] MED LIST changes: -ISOVUE-370 76% 100ML VIAL As Ordered ONE; -MULTTAB61 PO; -PERI12LIQ MT
[2023-12-26 16:45] LABS: VENOUS BASE EXCESS 6.5 (-2.0-2.0); VENOUS HCO3 30.5 MMOL/L (23.0-27.0); VENOUS O2 SATURATION 99.2 % (60.0-80.0); VENOUS PARTIAL PRESSURE CO2 41.7 mmHg (38.0-50.0); VENOUS PARTIAL PRESSURE O2 143.1 mmHg (30.0-50.0); VENOUS PH 7.482 UNITS (7.330-7.430); VENOUS STANDARD HCO3 30.4 MMOL/L; VENOUS TOTAL CO2 31.8 MMOL/L (24.0-28.0)
[2023-12-26 16:48] LABS: HEMATOCRIT 28.2 % (36.0-47.0); HEMOGLOBIN 9.2 g/dl (12.0-15.5); MEAN CORPUSCULAR HEMOGLOBIN 30.1 pg (27.0-33.0); MEAN CORPUSCULAR HGB CONC 32.6 g/dl (32.0-36.5); MEAN CORPUSCULAR VOLUME 92.2 fl (80.0-96.0); PLATELET COUNT, AUTOMATED 229 10^3/uL (150-450); RED BLOOD COUNT 3.06 10^6/uL (4.00-5.40); WHITE BLOOD COUNT 4.9 10^3/uL (4.0-10.0)
[2023-12-26] MEDS: ALBUTEROL SULFATE 2.5MG/0.5ML INH NEB SOLN INH ONE (16:50)
[2023-12-26] MEDS: IPRATROPIUM 0.5MG/ALBUTEROL 2.5MG INH SOL UD 3ML (DUONEB) NEB ONE (16:50)
[2023-12-26] MEDS ORDERED: ISOVUE-370 76% 100ML VIAL As Ordered ONE (16:56)
[2023-12-26] MEDS: ACETAMINOPHEN 325 MG TAB PO ONE (17:02)
[2023-12-26] MEDS: methylPREDNISolone 125MG 2ML VIAL IV ONE (17:02)
[2023-12-26] MEDS: NS 1,000 ML IV ONE (17:05)
[2023-12-26 17:13] LABS: BASOPHILS 1 % (0-1); EOSINOPHILS 2 % (0-3); LYMPHOCYTES 9 % (16-44); MONOCYTES 14 % (0-5); NEUTROPHILS 73 % (28-66); PLATELET ESTIMATE NORMAL (NORMAL)
[2023-12-26 17:20] LABS: CPK CREATINE PHOSPHOKINASE 36 U/L (34-145)
[2023-12-26] MEDS: CEFEPIME HCL 2 GM in DEXTROSE 5% (D5W) ADV/MINI-BAG 50 ML IV ONE (17:42)
[2023-12-26 17:43] LABS: ALBUMIN 2.5 G/DL (3.2-5.2); ALKALINE PHOSPHATASE 97 U/L (46-116); ALT/SGPT 43 U/L (7.0-40); AST/SGOT 55 U/L (<34); BILIRUBIN,DIRECT 0.1 MG/DL (<0.4); BILIRUBIN,TOTAL 0.4 MG/DL (0.3-1.2); BLOOD UREA NITROGEN 18 MG/DL (9-23); CALCIUM LEVEL 8.8 MG/DL (8.3-10.6); CARBON DIOXIDE LEVEL 32 MMOL/L (20-31); CHLORIDE LEVEL 102 MMOL/L (98-107); CK-MB VALUE MASS < 1.0 NG/ML (<3.6); CREATININE FOR GFR 0.93 MG/DL (0.55-1.30); GLOMERULAR FILTRATION RATE > 60.0 (>45); GLUCOSE, FASTING 99 MG/DL (74-106); MB/CK RELATIVE INDEX 2.77 (< OR =4); POTASSIUM SERUM 3.6 MMOL/L (3.5-5.1); SODIUM LEVEL 138 MMOL/L (136-145); THYROID STIMULATING HORMONE 1.543 uIU/ML (0.55-4.78); TOTAL PROTEIN 6.2 G/DL (5.7-8.2)
[2023-12-26] MEDS: LevoFLOXacin IV 750 MG in IV 1 EA IV ONE (18:18)
[2023-12-26] MEDS ORDERED: MULTTAB61 PO (18:47)
[2023-12-26] MEDS ORDERED: DEXA4TA PO (18:47)
[2023-12-26] MEDS ORDERED: FOLI1TAB11 PO (18:47)
[2023-12-26] MEDS ORDERED: PERI12LIQ MT (18:48)
[2023-12-26] MEDS ORDERED: HOME MED LIST COMPLETE! XX SCH (18:50)
[2023-12-26] MEDS ORDERED: MAALOX 30 ML SUSP *UDC PO PRN (20:20)
[2023-12-26] MEDS ORDERED: ACETAMINOPHEN 325 MG TAB PO PRN (20:20)
[2023-12-26] MEDS ORDERED: ALBUTEROL 90 MCG/ACT 8GM HFA INHALER INH PRN (20:20)
[2023-12-26] MEDS: CHLORHEXIDINE GLUCONATE 0.12 % 15ML UDC (PERIDEX ORAL RINSE) MT SCH (21:00)
[2023-12-26] MEDS: DOCUSATE SODIUM 100MG CAPSULE PO SCH (21:06)
[2023-12-26 21:45] LABS: INR 1.19; PARTIAL THROMBOPLASTIN TIME 29.9 SECONDS (24.8-34.2); PROTHROMBIN TIME 14.8 SECONDS (12.5-14.5)
[2023-12-26 21:59] LABS: MAGNESIUM LEVEL 1.7 MG/DL (1.8-2.4)
[2023-12-26 22:00] VITALS: BP 135/77; TEMP 97.7; O2SAT 92
[2023-12-26 22:20] VITALS: O2SAT 86
[2023-12-26 22:23] VITALS: O2SAT 93
[2023-12-26 22:37] VITALS: O2SAT 92
[2023-12-26] MEDS: MAGNESIUM OXIDE 400MG TAB (MAG-OX) PO ONE (22:39)
[2023-12-26 22:51] VITALS: O2SAT 92
[2023-12-27] VITALS: BP 152/84; TEMP 97.3; O2SAT 94
[2023-12-27] MEDS: CEFEPIME HCL 2 GM in DEXTROSE 5% (D5W) ADV/MINI-BAG 50 ML IV SCH (01:09)
[2023-12-27] MEDS: IPRATROPIUM 0.5MG/ALBUTEROL 2.5MG INH SOL UD 3ML (DUONEB) INH SCH (01:44)
[2023-12-27 03:06] VITALS: BP 114/68; TEMP 97.7; O2SAT 91
[2023-12-27 06:23] LABS: HEMATOCRIT 28.4 % (36.0-47.0); HEMOGLOBIN 9.2 g/dl (12.0-15.5); MEAN CORPUSCULAR HEMOGLOBIN 29.3 pg (27.0-33.0); MEAN CORPUSCULAR HGB CONC 32.4 g/dl (32.0-36.5); MEAN CORPUSCULAR VOLUME 90.4 fl (80.0-96.0); PLATELET COUNT, AUTOMATED 247 10^3/uL (150-450); RED BLOOD COUNT 3.14 10^6/uL (4.00-5.40); WHITE BLOOD COUNT 2.9 10^3/uL (4.0-10.0)
[2023-12-27 07:10] LABS: ALBUMIN 2.4 G/DL (3.2-5.2); ALKALINE PHOSPHATASE 90 U/L (46-116); ALT/SGPT 41 U/L (7.0-40); AST/SGOT 43 U/L (<34); BILIRUBIN,TOTAL 0.3 MG/DL (0.3-1.2); BLOOD UREA NITROGEN 16 MG/DL (9-23); CALCIUM LEVEL 9.4 MG/DL (8.3-10.6); CARBON DIOXIDE LEVEL 31 MMOL/L (20-31); CHLORIDE LEVEL 108 MMOL/L (98-107); CREATININE FOR GFR 0.71 MG/DL (0.55-1.30); GLOMERULAR FILTRATION RATE > 60.0 (>45); GLUCOSE, FASTING 148 MG/DL (74-106); MAGNESIUM LEVEL 2.1 MG/DL (1.8-2.4); SODIUM LEVEL 145 MMOL/L (136-145); TOTAL PROTEIN 6.2 G/DL (5.7-8.2)
[2023-12-27 08:00] VITALS: BP 117/69; TEMP 97.9; O2SAT 92
[2023-12-27] MEDS: predniSONE 20 MG TAB PO SCH (08:24)
[2023-12-27] MEDS: FOLIC ACID 1MG TAB PO SCH (08:27)
[2023-12-27] MEDS: MULTIVITAMINS/MINERALS THERAP 1 TAB PO ONE (08:28)
[2023-12-27] MEDS: PANTOPRAZOLE 40MG TAB (PROTONIX) PO SCH (08:29)
[2023-12-27] MEDS ORDERED: ONDANSETRON 4MG 2ML VIAL IV PRN (08:30)
[2023-12-27] MEDS: ENOXAPARIN 40MG/0.4ML SYRINGE (J1650 PER 10MG) SC SCH (08:33)
[2023-12-27] MEDS: ADVAIR HFA 45/21MCG INHALER INH SCH (08:42)
[2023-12-27] MEDS ORDERED: ENTER DRUG NAME HERE (PATIENT'S OWN MED) INH SCH (09:00)
[2023-12-27 12:00] VITALS: BP 133/77; TEMP 98.1; O2SAT 92
[2023-12-27] MEDS: LevoFLOXacin 750 MG TABLET PO SCH (18:30)
[2023-12-27 19:54] VITALS: BP 115/74; TEMP 98.6; O2SAT 93
[2023-12-28] VITALS: BP 115/74; TEMP 98.1; O2SAT 92
[2023-12-28 03:11] VITALS: BP 119/72; TEMP 98.6; O2SAT 94
[2023-12-28 05:52] LABS: BASO % 0.1 % (0.0-1.0); EOS % 0.5 % (0.0-3.0); HEMATOCRIT 27.9 % (36.0-47.0); HEMOGLOBIN 8.9 g/dl (12.0-15.5); LYMPH % 11.5 % (24.0-44.0); MEAN CORPUSCULAR HEMOGLOBIN 29.1 pg (27.0-33.0); MEAN CORPUSCULAR HGB CONC 31.9 g/dl (32.0-36.5); MEAN CORPUSCULAR VOLUME 91.2 fl (80.0-96.0); MONO # 1.1 10^3/uL (0.0-0.8); MONO % 12.7 % (2.0-8.0); NEUTROPHILS # 6.5 10^3/uL (1.5-8.5); NEUTROPHILS % 73.4 % (36.0-66.0); PLATELET COUNT, AUTOMATED 296 10^3/uL (150-450); RED BLOOD COUNT 3.06 10^6/uL (4.00-5.40); WHITE BLOOD COUNT 8.9 10^3/uL (4.0-10.0)
[2023-12-28 06:10] LABS: BLOOD UREA NITROGEN 20 MG/DL (9-23); CALCIUM LEVEL 9.2 MG/DL (8.3-10.6); CARBON DIOXIDE LEVEL 32 MMOL/L (20-31); CHLORIDE LEVEL 107 MMOL/L (98-107); GLOMERULAR FILTRATION RATE > 60.0 (>45); GLUCOSE, FASTING 82 MG/DL (74-106); POTASSIUM SERUM 3.6 MMOL/L (3.5-5.1); SODIUM LEVEL 144 MMOL/L (136-145)
[2023-12-28 08:41] VITALS: BP 144/81; TEMP 98.1; O2SAT 92
[2023-12-28] MEDS: MOM 30ML SUSPENSION UDC PO PRN (10:31)
[2023-12-28 12:00] VITALS: BP 141/73; TEMP 98.6; O2SAT 94
[2023-12-28 16:00] VITALS: BP 139/71; TEMP 98.8; O2SAT 95
[2023-12-28 21:10] VITALS: BP 140/75; TEMP 97.7; O2SAT 93
[2023-12-29] VITALS: BP 122/66; TEMP 97.7; O2SAT 96
[2023-12-29 03:54] VITALS: BP 118/67; TEMP 98.1; O2SAT 95
[2023-12-29 06:27] LABS: HEMATOCRIT 28.5 % (36.0-47.0); HEMOGLOBIN 8.9 g/dl (12.0-15.5); MEAN CORPUSCULAR HEMOGLOBIN 29.7 pg (27.0-33.0); MEAN CORPUSCULAR HGB CONC 31.2 g/dl (32.0-36.5); PLATELET COUNT, AUTOMATED 380 10^3/uL (150-450); WHITE BLOOD COUNT 7.5 10^3/uL (4.0-10.0)
[2023-12-29 06:50] LABS: BLOOD UREA NITROGEN 20 MG/DL (9-23); CARBON DIOXIDE LEVEL 34 MMOL/L (20-31); CHLORIDE LEVEL 108 MMOL/L (98-107); CREATININE FOR GFR 0.89 MG/DL (0.55-1.30); GLOMERULAR FILTRATION RATE > 60.0 (>45); GLUCOSE, FASTING 80 MG/DL (74-106); POTASSIUM SERUM 4.1 MMOL/L (3.5-5.1); SODIUM LEVEL 145 MMOL/L (136-145)
[2023-12-29 07:42] LABS: ANISOCYTOSIS 1+; ATYPICAL LYMPH 2 % (0-5); EOSINOPHILS 4 % (0-3); LYMPHOCYTES 11 % (16-44); MONOCYTES 15 % (0-5); NEUTROPHILS 68 % (28-66); PLATELET ESTIMATE NORMAL (NORMAL); POIKILOCYTOSIS 1+; POLYCHROMASIA 1+
[2023-12-29 08:30] VITALS: BP 141/95; TEMP 98.8; O2SAT 92
[2023-12-29 11:54] VITALS: BP 144/90; TEMP 97.5; O2SAT 93
[2023-12-29] MEDS: MOM 30ML SUSPENSION UDC PO SCH (11:57)
[2023-12-29] MEDS: SENNA 8.6 MG TAB (SENOKOT) PO SCH (11:57)
[2023-12-29] MEDS: BISACODYL 10MG SUPP PR ONE (11:57)
[2023-12-29] MEDS: SODIUM CHLORIDE NASAL 0.65% SPRAY BTL (OCEAN) SCH (11:57)
[2023-12-29 20:00] VITALS: BP 151/93; TEMP 99; O2SAT 95
[2023-12-30] VITALS (8 sets, daily range): BP systolic 137–140; BP diastolic 77–88; TEMP 97.7–98.6; O2SAT 78–96
[2023-12-30 06:33] LABS: BASO % 0.6 % (0.0-1.0); EOS # 0.5 10^3/uL (0.0-0.5); EOS % 6.3 % (0.0-3.0); HEMATOCRIT 28.8 % (36.0-47.0); HEMOGLOBIN 8.8 g/dl (12.0-15.5); LYMPH % 13.7 % (24.0-44.0); MEAN CORPUSCULAR HGB CONC 30.6 g/dl (32.0-36.5); MONO # 1.2 10^3/uL (0.0-0.8); MONO % 16.8 % (2.0-8.0); NEUTROPHILS % 55.3 % (36.0-66.0); PLATELET COUNT, AUTOMATED 461 10^3/uL (150-450); RED BLOOD COUNT 3.03 10^6/uL (4.00-5.40); WHITE BLOOD COUNT 7.3 10^3/uL (4.0-10.0)
[2023-12-30 06:57] LABS: BLOOD UREA NITROGEN 20 MG/DL (9-23); CALCIUM LEVEL 9.5 MG/DL (8.3-10.6); CARBON DIOXIDE LEVEL 34 MMOL/L (20-31); CHLORIDE LEVEL 105 MMOL/L (98-107); GLOMERULAR FILTRATION RATE > 60.0 (>45); GLUCOSE, FASTING 84 MG/DL (74-106); POTASSIUM SERUM 4.3 MMOL/L (3.5-5.1); SODIUM LEVEL 142 MMOL/L (136-145)
[2023-12-30] MEDS: FUROSEMIDE 40MG/4ML VIAL IV ONE (11:30)
[2023-12-31 00:27] VITALS: BP 120/65; TEMP 98.1; O2SAT 96
[2023-12-31 04:00] VITALS: BP 118/64; TEMP 97.9; O2SAT 96
[2023-12-31 05:07] LABS: BASO # 0.1 10^3/uL (0.0-0.2); BASO % 0.8 % (0.0-1.0); EOS # 0.6 10^3/uL (0.0-0.5); EOS % 8.2 % (0.0-3.0); HEMATOCRIT 28.7 % (36.0-47.0); HEMOGLOBIN 8.9 g/dl (12.0-15.5); LYMPH % 14.2 % (24.0-44.0); MEAN CORPUSCULAR HEMOGLOBIN 29.5 pg (27.0-33.0); MONO # 1.3 10^3/uL (0.0-0.8); MONO % 18.4 % (2.0-8.0); NEUTROPHILS # 3.4 10^3/uL (1.5-8.5); NEUTROPHILS % 47.7 % (36.0-66.0); PLATELET COUNT, AUTOMATED 481 10^3/uL (150-450); RED BLOOD COUNT 3.02 10^6/uL (4.00-5.40); WHITE BLOOD COUNT 7.2 10^3/uL (4.0-10.0)
[2023-12-31 05:32] LABS: CALCIUM LEVEL 9.5 MG/DL (8.3-10.6); CREATININE FOR GFR 0.99 MG/DL (0.55-1.30); GLOMERULAR FILTRATION RATE 59.9 (>45); POTASSIUM SERUM 3.8 MMOL/L (3.5-5.1)
[2023-12-31 12:00] VITALS: BP 139/79; TEMP 98.8; O2SAT 94
[2023-12-31] MEDS ORDERED: SENN1TAB85 PO (14:36)
[2023-12-31] MEDS ORDERED: IPRA0.00 INH (14:36)
[2023-12-31] MEDS ORDERED: PANT40TA29 PO (14:36)
[2023-12-31] MEDS ORDERED: LEVO1TAB40 PO (14:36)
[2023-12-31] MEDS ORDERED: Sodium Chloride Nasal Spray (14:36)
[2023-12-31] MEDS ORDERED: PRED20TA PO (14:36)
[2023-12-31] MEDS ORDERED: PRED10TA2 PO (14:36)
[2023-12-31] MEDS ORDERED: NASA0.9A NARES (14:40)
[2023-12-31] MEDS ORDERED: COMPMIS43 XX (14:44)
[2023-12-31] MEDS: FUROSEMIDE 40MG/4ML VIAL IV ONE (16:12)
== END 2023-12-31 16:54 | disposition home health service (06) | DRG 871 ==
LOC: EDBD 16:03 → M ED 16:03 → M ED INP 20:16 → M MSPAV 22:04
PROVIDERS: ADMIT Student in an Organized Health Care Education/Training Program; ATTEND Internal Medicine Nephrology
DX: A41.9 Sepsis, unspecified organism (principal); J15.69 Pneumonia due to other Gram-negative bacteria; C34.90 Malignant neoplasm of unspecified part of unspecified bronchus or lung; J44.1 Chronic obstructive pulmonary disease with (acute) exacerbation; J44.0 Chronic obstructive pulmonary disease with (acute) lower respiratory infection; J96.11 Chronic respiratory failure with hypoxia; C77.1 Secondary and unspecified malignant neoplasm of intrathoracic lymph nodes; C79.51 Secondary malignant neoplasm of bone; F17.200 Nicotine dependence, unspecified, uncomplicated; I10 Essential (primary) hypertension; M19.90 Unspecified osteoarthritis, unspecified site; Z99.81 Dependence on supplemental oxygen; Z79.899 Other long term (current) drug therapy; K59.00 Constipation, unspecified

== ENCOUNTER → 2024-02-19 | Outpatient (CLI) | payer MEDICARE, OTHER ==
[~2024-02-19] MED LIST changes: -ADV100INH INH; +ADVA1AER8 INH; +COMPMIS43 XX; +IPRA0.00 INH; +LEVO1TAB40 PO; +MULTTAB61 PO; +NASA0.9A NARES; +PANT40TA29 PO; +PERI12LIQ MT; +PRED10TA2 PO; +PRED20TA PO; +SENN1TAB85 PO; +Sodium Chloride Nasal Spray
== END ==
LOC: M RAD 13:45
PROVIDERS: ATTEND Internal Medicine Pulmonary Disease
DX: R91.8 Other nonspecific abnormal finding of lung field (principal); J98.11 Atelectasis; J84.10 Pulmonary fibrosis, unspecified; J43.2 Centrilobular emphysema; I70.0 Atherosclerosis of aorta; D35.02 Benign neoplasm of left adrenal gland; D35.01 Benign neoplasm of right adrenal gland; J47.9 Bronchiectasis, uncomplicated

== ENCOUNTER → 2024-05-20 | Outpatient (CLI) | payer MEDICARE, OTHER ==
[~2024-05-20] MED LIST changes: +ISOVUE-370 76% 100ML VIAL As Ordered ONE
== END ==
LOC: M RAD 13:45
PROVIDERS: ATTEND Specialist
DX: C34.32 Malignant neoplasm of lower lobe, left bronchus or lung (principal); J43.2 Centrilobular emphysema; D35.02 Benign neoplasm of left adrenal gland; J90 Pleural effusion, not elsewhere classified; D35.01 Benign neoplasm of right adrenal gland
CPT/HCPCS: 71260; Q9967

== ENCOUNTER 2024-11-20 13:48 | Inpatient (IN) | payer MEDICARE, OTHER ==
[2024-11-20] VITALS (8 sets, daily range): BP systolic 96–132; BP diastolic 54–90; TEMP 97.5–98.9; O2SAT 84–95
[~2024-11-20] VITALS: Ht 162.6 cm; Wt 72.7 kg
[~2024-11-20 13:48] MED LIST changes: -ISOVUE-370 76% 100ML VIAL As Ordered ONE
[2024-11-20] MEDS: IPRATROPIUM 0.5 MG/ALBUTEROL 2.5 MG INH SOL UD 3 ML NEB PRN ×2 (14:12→19:30)
[2024-11-20 14:26] LABS: ABG BASE EXCESS 8.3 (-2.0-2.0); ABG HCO3 38.3 MMOL/L (22.0-26.0); ABG O2 SATURATION 93.1 % (95.0-99.0); ABG PARTIAL PRESSURE O2 68.9 mmHg (75.0-100.0); ABG STANDARD HCO3 32.0 MMOL/L. (22.0-26.0); ABG TOTAL CO2 40.8 MMOL/L (23.0-31.0); ABG pH (ARTERIAL) 7.286 UNITS (7.350-7.450)
[2024-11-20 14:27] LABS: BASO # 0.0 10^3/uL (0.0-0.2); BASO % 0.6 % (0.0-1.0); EOS # 0.0 10^3/uL (0.0-0.5); EOS % 0.6 % (0.0-3.0); LYMPH # 0.5 10^3/uL (1.5-5.0); LYMPH % 16.7 % (24.0-44.0); MONO # 1.0 10^3/uL (0.0-0.8); MONO % 31.9 % (2.0-8.0); NEUTROPHILS # 1.6 10^3/uL (1.5-8.5); NEUTROPHILS % 48.0 % (36.0-66.0); PLATELET COUNT, AUTOMATED 120 10^3/uL (150-450)
[2024-11-20 14:39] LABS: INR 0.89
[2024-11-20 14:46] LABS: CPK CREATINE PHOSPHOKINASE 28 U/L (34-145)
[2024-11-20 14:49] LABS: ABG PARTIAL PRESSURE CO2 82.2 mmHg (35.0-45.0)
[2024-11-20 14:54] LABS: ALT/SGPT 28 U/L (7.0-40); AST/SGOT 47 U/L (<34); CALCIUM LEVEL 8.6 MG/DL (8.3-10.6); CARBON DIOXIDE LEVEL > 40.0 MMOL/L (20-31); CHLORIDE LEVEL 96 MMOL/L (98-107); CK-MB VALUE MASS 1.1 NG/ML (<3.6); CREATININE FOR GFR 0.98 MG/DL (0.55-1.30); GLOMERULAR FILTRATION RATE 63.7 (>45); MB/CK RELATIVE INDEX 3.92 (< OR =4); POTASSIUM SERUM 4.1 MMOL/L (3.5-5.1); SODIUM LEVEL 142 MMOL/L (136-145)
[2024-11-20] MEDS ORDERED: HOME MED LIST COMPLETE! XX SCH (15:15)
[2024-11-20] MEDS ORDERED: ISOVUE-370 76% 100 ML VIAL As Ordered ONE (15:17)
[2024-11-20 15:22] LABS: KETONE, URINE AUTO RFX NEGATIVE (NEGATIVE); LEUKOCYTE ESTERASE UR AUTO RFX NEGATIVE (NEGATIVE); MUCUS, URINE RFX SMALL (NEGATIVE); NITRITE, URINE AUTO RFX NEGATIVE (NEGATIVE); RBC, URINE AUTO RFX 1 /HPF (0-3); SQUAM EPITHELIAL CELL UR AURFX 22 /HPF (0-6); TRANSITIONAL EPITHELIAL AU RFX 1 /HPF
[2024-11-20 15:25] LABS: WBC, URINE AUTO RFX 12 /HPF (0-3)
[2024-11-20] MEDS: CEFEPIME HCL 2 GM in DEXTROSE 5% (D5W) ADV/MINI-BAG 50 ML IV ONE (15:28)
[2024-11-20] MEDS: FUROSEMIDE 40 MG/4 ML VIAL IV ONE (15:28)
[2024-11-20 15:52] LABS: CK-MB VALUE MASS < 1.0 NG/ML (<3.6)
[2024-11-20 15:53] LABS: CPK CREATINE PHOSPHOKINASE 27 U/L (34-145)
[2024-11-20 18:40] LABS: VENOUS BASE EXCESS 9.0 (-2.0-2.0); VENOUS HCO3 38.2 MMOL/L (23.0-27.0); VENOUS O2 SATURATION 95.0 % (60.0-80.0); VENOUS PARTIAL PRESSURE CO2 74.2 mmHg (38.0-50.0); VENOUS PARTIAL PRESSURE O2 80.2 mmHg (30.0-50.0); VENOUS PH 7.329 UNITS (7.330-7.430); VENOUS STANDARD HCO3 32.7 MMOL/L; VENOUS TOTAL CO2 40.4 MMOL/L (24.0-28.0)
[2024-11-20] MEDS: AZITHROMYCIN 250 MG TABLET PO ONE (18:51)
[2024-11-20] MEDS: GLYCOPYRROLATE INJ 0.2 MG/ML 2 ML VIAL NEB SCH (19:29)
[2024-11-20] MEDS: SENNOSIDES/DOCUSATE SODIUM 8.6 MG/50MG TAB PO SCH (20:02)
[2024-11-20] MEDS: CEFEPIME HCL 2 GM in DEXTROSE 5% (D5W) ADV/MINI-BAG 50 ML IV SCH (23:30)
[2024-11-21] VITALS (26 sets, daily range): BP systolic 98–144; BP diastolic 55–82; TEMP 97.8–98.8; O2SAT 80–96
[2024-11-21 06:01] LABS: VENOUS BASE EXCESS 11.3 (-2.0-2.0); VENOUS HCO3 35.9 MMOL/L (23.0-27.0); VENOUS O2 SATURATION 99.3 % (60.0-80.0); VENOUS PARTIAL PRESSURE CO2 47.7 mmHg (38.0-50.0); VENOUS PARTIAL PRESSURE O2 213.0 mmHg (30.0-50.0); VENOUS PH 7.494 UNITS (7.330-7.430); VENOUS STANDARD HCO3 35.0 MMOL/L; VENOUS TOTAL CO2 37.3 MMOL/L (24.0-28.0)
[2024-11-21 06:23] LABS: PLATELET COUNT, AUTOMATED 104 10^3/uL (150-450)
[2024-11-21 06:51] LABS: ALT/SGPT 23.0 U/L (7.0-40); AST/SGOT 41.0 U/L (<34); CALCIUM LEVEL 8.6 MG/DL (8.3-10.6); CARBON DIOXIDE LEVEL 38.0 MMOL/L (20-31); CHLORIDE LEVEL 96.0 MMOL/L (98-107); CREATININE FOR GFR 1.25 MG/DL (0.55-1.30); GLOMERULAR FILTRATION RATE 47.5 (>45); POTASSIUM SERUM 4.6 MMOL/L (3.5-5.1); SODIUM LEVEL 141.0 MMOL/L (136-145)
[2024-11-21 07:33] LABS: ATYPICAL LYMPH 3 % (0-5); LYMPHOCYTES 21 % (16-44); MONOCYTES 11 % (0-5); NEUTROPHILS 65 % (28-66); PLATELET ESTIMATE DECREASED (NORMAL)
[2024-11-21] MEDS: ENOXAPARIN 40 MG/0.4 ML SYRINGE (J1650 PER 10MG) SC SCH (08:24)
[2024-11-21] MEDS: FOLIC ACID 1 MG TAB PO SCH (08:25)
[2024-11-21] MEDS: AZITHROMYCIN 250 MG TABLET PO SCH (08:25)
[2024-11-21] MEDS: amLODIPine 10 MG TAB PO SCH (08:25)
[2024-11-21] MEDS: predniSONE 20 MG TAB PO SCH (08:25)
[2024-11-21] MEDS: PANTOPRAZOLE 40MG TAB PO SCH (08:26)
[2024-11-21 10:51] LABS: VENOUS BASE EXCESS 10.9 (-2.0-2.0); VENOUS HCO3 37.2 MMOL/L (23.0-27.0); VENOUS O2 SATURATION 98.4 % (60.0-80.0); VENOUS PARTIAL PRESSURE CO2 58.9 mmHg (38.0-50.0); VENOUS PARTIAL PRESSURE O2 150.6 mmHg (30.0-50.0); VENOUS PH 7.418 UNITS (7.330-7.430); VENOUS STANDARD HCO3 34.6 MMOL/L; VENOUS TOTAL CO2 39.0 MMOL/L (24.0-28.0)
[2024-11-22] VITALS (18 sets, daily range): BP systolic 123–158; BP diastolic 62–84; TEMP 97.3–98.5; O2SAT 85–100
[2024-11-22 05:24] LABS: PLATELET COUNT, AUTOMATED 138 10^3/uL (150-450)
[2024-11-22 05:43] LABS: ALT/SGPT 22.0 U/L (7.0-40); AST/SGOT 40.0 U/L (<34); CALCIUM LEVEL 8.2 MG/DL (8.3-10.6); CARBON DIOXIDE LEVEL 38.0 MMOL/L (20-31); CHLORIDE LEVEL 98.0 MMOL/L (98-107); CREATININE FOR GFR 1.63 MG/DL (0.55-1.30); GLOMERULAR FILTRATION RATE 34.6 (>45); MAGNESIUM LEVEL 2.0 MG/DL (1.8-2.4); PHOSPHORUS LEVEL 4.4 MG/DL (2.4-5.1); POTASSIUM SERUM 4.0 MMOL/L (3.5-5.1); SODIUM LEVEL 137.0 MMOL/L (136-145)
[2024-11-22 06:01] LABS: ATYPICAL LYMPH 17 % (0-5); LYMPHOCYTES 10 % (16-44); MONOCYTES 7 % (0-5); NEUTROPHILS 65 % (28-66)
[2024-11-22 06:02] LABS: PLATELET ESTIMATE DECREASED (NORMAL)
[2024-11-22] MEDS: FUROSEMIDE 100 MG/10 ML VIAL IV ONE (10:40)
[2024-11-23] VITALS (14 sets, daily range): BP systolic 120–133; BP diastolic 62–72; TEMP 97.5–98.2; O2SAT 85–98
[2024-11-23 05:36] LABS: PLATELET COUNT, AUTOMATED 168 10^3/uL (150-450)
[2024-11-23 05:40] LABS: ALT/SGPT 22.0 U/L (7.0-40); AST/SGOT 40.0 U/L (<34); CALCIUM LEVEL 8.2 MG/DL (8.3-10.6); CARBON DIOXIDE LEVEL 39.0 MMOL/L (20-31); CHLORIDE LEVEL 96.0 MMOL/L (98-107); CREATININE FOR GFR 1.57 MG/DL (0.55-1.30); GLOMERULAR FILTRATION RATE 36.2 (>45); POTASSIUM SERUM 3.8 MMOL/L (3.5-5.1); SODIUM LEVEL 137.0 MMOL/L (136-145)
[2024-11-23 06:37] LABS: ATYPICAL LYMPH 4 % (0-5); LYMPHOCYTES 14 % (16-44); METAMYELOCYTES 1 % (0-0); MONOCYTES 10 % (0-5); NEUTROPHILS 69 % (28-66)
[2024-11-23 06:39] LABS: PLATELET ESTIMATE NORMAL (NORMAL)
[2024-11-23] MEDS: FUROSEMIDE 100 MG/10 ML VIAL IV ONE (11:55)
[2024-11-23] MEDS: CEFEPIME HCL 2 GM in DEXTROSE 5% (D5W) ADV/MINI-BAG 50 ML IV SCH (19:56)
[2024-11-24] VITALS (14 sets, daily range): BP systolic 125–140; BP diastolic 69–93; TEMP 97.3–98.1; O2SAT 84–99
[2024-11-24 04:58] LABS: PLATELET COUNT, AUTOMATED 229 10^3/uL (150-450)
[2024-11-24 05:18] LABS: ALT/SGPT 20 U/L (7.0-40); AST/SGOT 38 U/L (<34); CALCIUM LEVEL 8.3 MG/DL (8.3-10.6); CARBON DIOXIDE LEVEL > 40.0 MMOL/L (20-31); CHLORIDE LEVEL 98 MMOL/L (98-107); CREATININE FOR GFR 1.75 MG/DL (0.55-1.30); GLOMERULAR FILTRATION RATE 31.8 (>45); POTASSIUM SERUM 3.9 MMOL/L (3.5-5.1); SODIUM LEVEL 143 MMOL/L (136-145)
[2024-11-24 05:19] LABS: ATYPICAL LYMPH 5 % (0-5); LYMPHOCYTES 16 % (16-44); METAMYELOCYTES 2 % (0-0); MONOCYTES 20 % (0-5); NEUTROPHILS 57 % (28-66)
[2024-11-24 05:21] LABS: PLATELET ESTIMATE NORMAL (NORMAL)
[2024-11-24] MEDS ORDERED: ALBUTEROL SULFATE 2.5 MG/0.5 ML INH CONCENTRATE NEB SOLN NEB PRN (13:15)
[2024-11-24] MEDS: NS (Normal Saline) 0.9% 1,000 ML IV SCH (13:40)
[2024-11-24 14:00] LABS: ABG BASE EXCESS 10.0 (-2.0-2.0); ABG HCO3 38.3 MMOL/L (22.0-26.0); ABG O2 SATURATION 95.8 % (95.0-99.0); ABG PARTIAL PRESSURE O2 86.2 mmHg (75.0-100.0); ABG STANDARD HCO3 33.7 MMOL/L. (22.0-26.0); ABG TOTAL CO2 40.6 MMOL/L (23.0-31.0); ABG pH (ARTERIAL) 7.325 UNITS (7.350-7.450)
[2024-11-24 14:03] LABS: ABG PARTIAL PRESSURE CO2 75.1 mmHg (35.0-45.0)
[2024-11-24] MEDS: IPRATROPIUM 0.5 MG/ALBUTEROL 2.5 MG INH SOL UD 3 ML NEB SCH (15:39)
[2024-11-25] VITALS (10 sets, daily range): BP systolic 106–142; BP diastolic 60–80; TEMP 97.1–98.7; O2SAT 91–99
[2024-11-25 06:09] LABS: PLATELET COUNT, AUTOMATED 325 10^3/uL (150-450)
[2024-11-25 06:40] LABS: ALT/SGPT 21.0 U/L (7.0-40); AST/SGOT 35.0 U/L (<34); CALCIUM LEVEL 8.6 MG/DL (8.3-10.6); CARBON DIOXIDE LEVEL 38.0 MMOL/L (20-31); CHLORIDE LEVEL 101.0 MMOL/L (98-107); CREATININE FOR GFR 1.36 MG/DL (0.55-1.30); GLOMERULAR FILTRATION RATE 43.0 (>45); POTASSIUM SERUM 4.3 MMOL/L (3.5-5.1); SODIUM LEVEL 147.0 MMOL/L (136-145)
[2024-11-25 07:49] LABS: ABG BASE EXCESS 10.5 (-2.0-2.0); ABG HCO3 37.8 MMOL/L (22.0-26.0); ABG O2 SATURATION 96.8 % (95.0-99.0); ABG PARTIAL PRESSURE O2 88.3 mmHg (75.0-100.0); ABG STANDARD HCO3 34.2 MMOL/L. (22.0-26.0); ABG TOTAL CO2 39.9 MMOL/L (23.0-31.0); ABG pH (ARTERIAL) 7.366 UNITS (7.350-7.450)
[2024-11-25 07:53] LABS: ABG PARTIAL PRESSURE CO2 67.5 mmHg (35.0-45.0)
[2024-11-25] MEDS: SODIUM CHLORIDE 23.4% INJ 40.8 MEQ in STERILE WATER LITER BAG 1,050 ML IV SCH (09:53)
[2024-11-26] VITALS (17 sets, daily range): BP systolic 139–158; BP diastolic 65–84; TEMP 97–98.6; O2SAT 90–98
[2024-11-26 07:38] LABS: PLATELET COUNT, AUTOMATED 376 10^3/uL (150-450)
[2024-11-26 08:02] LABS: ALT/SGPT 22.0 U/L (7.0-40); AST/SGOT 33.0 U/L (<34); CALCIUM LEVEL 8.8 MG/DL (8.3-10.6); CARBON DIOXIDE LEVEL 37.0 MMOL/L (20-31); CHLORIDE LEVEL 104.0 MMOL/L (98-107); CREATININE FOR GFR 1.46 MG/DL (0.55-1.30); GLOMERULAR FILTRATION RATE 39.5 (>45); POTASSIUM SERUM 4.3 MMOL/L (3.5-5.1); SODIUM LEVEL 148.0 MMOL/L (136-145)
[2024-11-26 10:27] LABS: ABG BASE EXCESS 10.3 (-2.0-2.0); ABG HCO3 36.9 MMOL/L (22.0-26.0); ABG O2 SATURATION 97.4 % (95.0-99.0); ABG PARTIAL PRESSURE O2 96.3 mmHg (75.0-100.0); ABG STANDARD HCO3 34.0 MMOL/L. (22.0-26.0); ABG TOTAL CO2 38.8 MMOL/L (23.0-31.0); ABG pH (ARTERIAL) 7.395 UNITS (7.350-7.450)
[2024-11-26 10:30] LABS: ABG PARTIAL PRESSURE CO2 61.7 mmHg (35.0-45.0)
[2024-11-26] MEDS: cefTRIAXone SOD 1 GM in DEXTROSE 5% (D5W) ADV/MINI-BAG 50 ML IV SCH (21:01)
[2024-11-27] VITALS (31 sets, daily range): BP systolic 134–161; BP diastolic 71–83; TEMP 97–98.3; O2SAT 90–100
[2024-11-27 06:22] LABS: PLATELET COUNT, AUTOMATED 475 10^3/uL (150-450)
[2024-11-27 06:28] LABS: ALT/SGPT 39 U/L (7.0-40); AST/SGOT 56 U/L (<34); CALCIUM LEVEL 9.5 MG/DL (8.3-10.6); CARBON DIOXIDE LEVEL 40 MMOL/L (20-31); CHLORIDE LEVEL 107 MMOL/L (98-107); CREATININE FOR GFR 1.41 MG/DL (0.55-1.30); GLOMERULAR FILTRATION RATE 41.1 (>45); POTASSIUM SERUM 3.9 MMOL/L (3.5-5.1); SODIUM LEVEL 152 MMOL/L (136-145)
[2024-11-27 08:00] LABS: VITAMIN B12 LEVEL 1456 PG/ML (211-911)
[2024-11-27 08:41] LABS: BASO # 0.0 10^3/uL (0.0-0.2); BASO % 0.2 % (0.0-1.0); EOS # 0.1 10^3/uL (0.0-0.5); EOS % 0.6 % (0.0-3.0); LYMPH # 1.0 10^3/uL (1.5-5.0); LYMPH % 9.2 % (24.0-44.0); MONO # 1.7 10^3/uL (0.0-0.8); MONO % 15.3 % (2.0-8.0); NEUTROPHILS # 7.7 10^3/uL (1.5-8.5); NEUTROPHILS % 70.5 % (36.0-66.0)
[2024-11-27] MEDS: predniSONE 20 MG TAB PO SCH (08:52)
[2024-11-27] MEDS: D5W 1,000 ML IV SCH (12:01)
[2024-11-27] MEDS: FUROSEMIDE 20 MG/2 ML VIAL IV SCH (16:25)
[2024-11-28] VITALS (31 sets, daily range): BP systolic 122–145; BP diastolic 67–73; TEMP 97.1–98.1; O2SAT 78–99
[2024-11-28 05:28] LABS: PLATELET COUNT, AUTOMATED 432 10^3/uL (150-450)
[2024-11-28 05:55] LABS: ALT/SGPT 44 U/L (7.0-40); AST/SGOT 50 U/L (<34); CALCIUM LEVEL 8.8 MG/DL (8.3-10.6); CARBON DIOXIDE LEVEL > 40.0 MMOL/L (20-31); CHLORIDE LEVEL 97 MMOL/L (98-107); CREATININE FOR GFR 1.34 MG/DL (0.55-1.30); GLOMERULAR FILTRATION RATE 43.7 (>45); POTASSIUM SERUM 3.7 MMOL/L (3.5-5.1); SODIUM LEVEL 142 MMOL/L (136-145)
[2024-11-28] MEDS: POTASSIUM CHLORIDE 10MEQ SR TABLET PO SCH (10:03)
[2024-11-28] MEDS: FUROSEMIDE 20 MG/2 ML VIAL IV SCH (17:42)
[2024-11-29] VITALS (28 sets, daily range): BP systolic 126–150; BP diastolic 72–80; TEMP 97–98.7; O2SAT 88–99
[2024-11-29 05:12] LABS: PLATELET COUNT, AUTOMATED 467 10^3/uL (150-450)
[2024-11-29] MEDS: CALCIUM CARBONATE 500 MG CHEW U/D PO ONE (05:32)
[2024-11-29 05:40] LABS: CALCIUM LEVEL 8.6 MG/DL (8.3-10.6); CARBON DIOXIDE LEVEL > 40.0 MMOL/L (20-31); CHLORIDE LEVEL 92 MMOL/L (98-107); CREATININE FOR GFR 1.49 MG/DL (0.55-1.30); GLOMERULAR FILTRATION RATE 38.5 (>45); POTASSIUM SERUM 3.8 MMOL/L (3.5-5.1); SODIUM LEVEL 139 MMOL/L (136-145)
[2024-11-29] MEDS: TETRAHYDROZOLINE OPHTH 0.05% 15 ML BTL OU PRN (14:42)
[2024-11-29] MEDS: MIRTAZAPINE 15 MG TAB PO SCH (19:47)
[2024-11-29] MEDS: MIRALAX *UNIT DOSE* 17 GM PACKET PO SCH (19:48)
[2024-11-30] VITALS (25 sets, daily range): BP systolic 128–138; BP diastolic 72–78; TEMP 97.6–98; O2SAT 89–99
[2024-11-30 05:55] LABS: ABG BASE EXCESS 19.2 (-2.0-2.0); ABG HCO3 46.0 MMOL/L (22.0-26.0); ABG O2 SATURATION 94.4 % (95.0-99.0); ABG PARTIAL PRESSURE O2 71.0 mmHg (75.0-100.0); ABG STANDARD HCO3 43.3 MMOL/L. (22.0-26.0); ABG TOTAL CO2 47.9 MMOL/L (23.0-31.0); ABG pH (ARTERIAL) 7.474 UNITS (7.350-7.450)
[2024-11-30 05:56] LABS: ABG PARTIAL PRESSURE CO2 64.0 mmHg (35.0-45.0)
[2024-11-30 08:38] LABS: BASO # 0.1 10^3/uL (0.0-0.2); BASO % 0.4 % (0.0-1.0); EOS # 0.2 10^3/uL (0.0-0.5); EOS % 1.1 % (0.0-3.0); LYMPH # 1.4 10^3/uL (1.5-5.0); LYMPH % 9.8 % (24.0-44.0); MONO # 1.6 10^3/uL (0.0-0.8); MONO % 11.7 % (2.0-8.0); NEUTROPHILS # 10.1 10^3/uL (1.5-8.5); NEUTROPHILS % 72.1 % (36.0-66.0); PLATELET COUNT, AUTOMATED 496 10^3/uL (150-450)
[2024-11-30] MEDS ORDERED: MIRALAX *UNIT DOSE* 17 GM PACKET PO SCH (09:00)
[2024-11-30 09:05] LABS: CALCIUM LEVEL 9.1 MG/DL (8.3-10.6); CARBON DIOXIDE LEVEL > 40.0 MMOL/L (20-31); CHLORIDE LEVEL 86 MMOL/L (98-107); CREATININE FOR GFR 1.75 MG/DL (0.55-1.30); GLOMERULAR FILTRATION RATE 31.8 (>45); POTASSIUM SERUM 3.7 MMOL/L (3.5-5.1); SODIUM LEVEL 136 MMOL/L (136-145)
[2024-12-01] VITALS (26 sets, daily range): BP systolic 129–135; BP diastolic 64–74; TEMP 97.7–98; O2SAT 87–100
[2024-12-01] MEDS: FUROSEMIDE 80 MG TAB PO SCH (08:00)
[2024-12-01 08:32] LABS: CALCIUM LEVEL 8.9 MG/DL (8.3-10.6); CARBON DIOXIDE LEVEL > 40.0 MMOL/L (20-31); CHLORIDE LEVEL 91 MMOL/L (98-107); CREATININE FOR GFR 1.68 MG/DL (0.55-1.30); GLOMERULAR FILTRATION RATE 33.3 (>45); POTASSIUM SERUM 4.0 MMOL/L (3.5-5.1); SODIUM LEVEL 141 MMOL/L (136-145)
[2024-12-01 10:19] LABS: BASO # 0.1 10^3/uL (0.0-0.2); BASO % 0.4 % (0.0-1.0); EOS # 0.1 10^3/uL (0.0-0.5); EOS % 0.8 % (0.0-3.0); LYMPH # 1.5 10^3/uL (1.5-5.0); LYMPH % 9.6 % (24.0-44.0); MONO # 2.0 10^3/uL (0.0-0.8); MONO % 12.7 % (2.0-8.0); NEUTROPHILS # 11.5 10^3/uL (1.5-8.5); NEUTROPHILS % 72.8 % (36.0-66.0); PLATELET COUNT, AUTOMATED 422 10^3/uL (150-450)
[2024-12-02] VITALS (26 sets, daily range): BP systolic 126–141; BP diastolic 68–78; TEMP 97.8–98.3; O2SAT 89–100
[2024-12-02 06:21] LABS: BASO # 0.1 10^3/uL (0.0-0.2); BASO % 0.4 % (0.0-1.0); EOS # 0.1 10^3/uL (0.0-0.5); EOS % 0.5 % (0.0-3.0); LYMPH # 1.4 10^3/uL (1.5-5.0); LYMPH % 6.7 % (24.0-44.0); MONO # 2.3 10^3/uL (0.0-0.8); MONO % 11.3 % (2.0-8.0); NEUTROPHILS # 16.2 10^3/uL (1.5-8.5); NEUTROPHILS % 77.9 % (36.0-66.0); PLATELET COUNT, AUTOMATED 391 10^3/uL (150-450)
[2024-12-02 06:49] LABS: CALCIUM LEVEL 8.9 MG/DL (8.3-10.6); CARBON DIOXIDE LEVEL > 40.0 MMOL/L (20-31); CHLORIDE LEVEL 90 MMOL/L (98-107); CREATININE FOR GFR 1.74 MG/DL (0.55-1.30); GLOMERULAR FILTRATION RATE 32.0 (>45); POTASSIUM SERUM 4.5 MMOL/L (3.5-5.1); SODIUM LEVEL 137 MMOL/L (136-145)
[2024-12-02] MEDS: predniSONE 10 MG TAB PO SCH (09:04)
[2024-12-03] VITALS (20 sets, daily range): BP systolic 122–137; BP diastolic 71–75; TEMP 97.3–98.2; O2SAT 90–99
[2024-12-03 06:04] LABS: BASO # 0.1 10^3/uL (0.0-0.2); BASO % 0.3 % (0.0-1.0); EOS # 0.1 10^3/uL (0.0-0.5); EOS % 0.4 % (0.0-3.0); LYMPH # 1.3 10^3/uL (1.5-5.0); LYMPH % 6.6 % (24.0-44.0); MONO # 2.1 10^3/uL (0.0-0.8); MONO % 10.8 % (2.0-8.0); NEUTROPHILS # 15.4 10^3/uL (1.5-8.5); NEUTROPHILS % 78.7 % (36.0-66.0); PLATELET COUNT, AUTOMATED 329 10^3/uL (150-450)
[2024-12-03 06:36] LABS: CALCIUM LEVEL 8.5 MG/DL (8.3-10.6); CARBON DIOXIDE LEVEL > 40.0 MMOL/L (20-31); CHLORIDE LEVEL 92 MMOL/L (98-107); POTASSIUM SERUM 4.2 MMOL/L (3.5-5.1); SODIUM LEVEL 138 MMOL/L (136-145)
[2024-12-03 06:42] LABS: CREATININE FOR GFR 1.49 MG/DL (0.55-1.30); GLOMERULAR FILTRATION RATE 38.5 (>45)
[2024-12-04 04:00] VITALS: BP 124/69; TEMP 97.9; O2SAT 97
[2024-12-04] MEDS: HEPARIN SOD 5000 UNITS/ML 1 ML VIAL/SYRINGE SQ SCH (09:38)
[2024-12-04 13:47] VITALS: O2SAT 93
[2024-12-04 14:38] VITALS: O2SAT 94
[2024-12-04 16:11] VITALS: O2SAT 93
[2024-12-04 18:43] VITALS: O2SAT 92
[2024-12-04 21:08] VITALS: O2SAT 98
[2024-12-05 06:58] VITALS: BP 128/77; TEMP 97.9; O2SAT 97
[2024-12-05 07:00] VITALS: O2SAT 97
[2024-12-05 08:00] VITALS: O2SAT 98
[2024-12-05 09:00] VITALS: O2SAT 92
[2024-12-05] MEDS: predniSONE 20 MG TAB PO SCH (09:17)
[2024-12-05 21:00] VITALS: O2SAT 94
[2024-12-06 08:38] LABS: PLATELET COUNT, AUTOMATED 278 10^3/uL (150-450)
[2024-12-06 09:02] LABS: ALT/SGPT 37.0 U/L (7.0-40); AST/SGOT 29.0 U/L (<34); CALCIUM LEVEL 8.8 MG/DL (8.3-10.6); CARBON DIOXIDE LEVEL 38.0 MMOL/L (20-31); CHLORIDE LEVEL 93.0 MMOL/L (98-107); CREATININE FOR GFR 1.17 MG/DL (0.55-1.30); GLOMERULAR FILTRATION RATE 51.5 (>45); POTASSIUM SERUM 4.3 MMOL/L (3.5-5.1); SODIUM LEVEL 139.0 MMOL/L (136-145)
[2024-12-06] MEDS: FLUZONE HIGH DOSE (65+) 0.5 ML SYRINGE (25-26) IM.IMMUN ONE (09:43)
[2024-12-06 18:10] VITALS: BP 131/68; TEMP 98.1; O2SAT 94
[2024-12-07 06:10] VITALS: BP 135/84; TEMP 97.5; O2SAT 96
[2024-12-08 06:00] VITALS: BP 137/67; TEMP 97.9; O2SAT 91
[2024-12-08] MEDS: predniSONE 10 MG TAB PO SCH (07:57)
[2024-12-08 08:00] VITALS: BP 139/77
[2024-12-08] MEDS ORDERED: MIRA33506 PO (19:14)
[2024-12-08] MEDS ORDERED: MIRT-10 PO (19:14)
[2024-12-08] MEDS ORDERED: POTA-136 PO (19:14)
[2024-12-08] MEDS ORDERED: FURO80TA2 PO (19:14)
[2024-12-08] MEDS ORDERED: PANT40TA29 PO (19:14)
[2024-12-08] MEDS ORDERED: PRED10TA2 PO (19:15)
[2024-12-08] MEDS ORDERED: PRED20TA PO (19:16)
[2024-12-09 05:38] VITALS: BP 136/86; TEMP 96.6; O2SAT 96
[2024-12-09 06:35] LABS: PLATELET COUNT, AUTOMATED 245 10^3/uL (150-450)
[2024-12-09 07:10] LABS: ALT/SGPT 29 U/L (7.0-40); AST/SGOT 26 U/L (<34); CALCIUM LEVEL 8.8 MG/DL (8.3-10.6); CARBON DIOXIDE LEVEL > 40.0 MMOL/L (20-31); CHLORIDE LEVEL 95 MMOL/L (98-107); CREATININE FOR GFR 1.18 MG/DL (0.55-1.30); GLOMERULAR FILTRATION RATE 50.9 (>45); POTASSIUM SERUM 3.8 MMOL/L (3.5-5.1); SODIUM LEVEL 144 MMOL/L (136-145)
== END 2024-12-09 14:20 | disposition home health service (06) | DRG 189 ==
LOC: M ED 13:48 → EDBD 13:48 → M ED INP 17:10 → M ICU 18:33 → M PCU 11-25 14:42 → M MS5PR 12-03 16:18
PROVIDERS: ADMIT Internal Medicine Pulmonary Disease; ATTEND Internal Medicine
DX: J96.21 Acute and chronic respiratory failure with hypoxia (principal); J15.9 Unspecified bacterial pneumonia; G93.41 Metabolic encephalopathy; D61.810 Antineoplastic chemotherapy induced pancytopenia; C79.51 Secondary malignant neoplasm of bone; C34.92 Malignant neoplasm of unspecified part of left bronchus or lung; C77.1 Secondary and unspecified malignant neoplasm of intrathoracic lymph nodes; J44.1 Chronic obstructive pulmonary disease with (acute) exacerbation; D84.9 Immunodeficiency, unspecified; J91.0 Malignant pleural effusion; N17.9 Acute kidney failure, unspecified; E87.0 Hyperosmolality and hypernatremia; E87.4 Mixed disorder of acid-base balance; J44.0 Chronic obstructive pulmonary disease with (acute) lower respiratory infection; I13.0 Hypertensive heart and chronic kidney disease with heart failure and stage 1 through stage 4 chronic kidney disease, or unspecified chronic kidney disease; R78.81 Bacteremia; I50.9 Heart failure, unspecified; N18.9 Chronic kidney disease, unspecified; J96.22 Acute and chronic respiratory failure with hypercapnia; F17.200 Nicotine dependence, unspecified, uncomplicated; E53.8 Deficiency of other specified B group vitamins; M19.90 Unspecified osteoarthritis, unspecified site; G47.00 Insomnia, unspecified; Z99.81 Dependence on supplemental oxygen; Z79.899 Other long term (current) drug therapy; K59.00 Constipation, unspecified

== ENCOUNTER → 2024-12-17 | Outpatient (REF) | payer MEDICARE, OTHER ==
[~2024-12-17] MED LIST changes: +FURO80TA2 PO; +MIRA33506 PO; +MIRT-10 PO; +POTA-136 PO
[2024-12-17 18:08] LABS: BASO # 0.1 10^3/uL (0.0-0.2); BASO % 0.6 % (0.0-1.0); EOS # 0.2 10^3/uL (0.0-0.5); EOS % 2.0 % (0.0-3.0); LYMPH # 1.1 10^3/uL (1.5-5.0); LYMPH % 13.6 % (24.0-44.0); MONO # 0.8 10^3/uL (0.0-0.8); MONO % 10.3 % (2.0-8.0); NEUTROPHILS # 5.9 10^3/uL (1.5-8.5); NEUTROPHILS % 72.9 % (36.0-66.0); PLATELET COUNT, AUTOMATED 272 10^3/uL (150-450)
[2024-12-17 18:26] LABS: CALCIUM LEVEL 8.9 MG/DL (8.3-10.6); CARBON DIOXIDE LEVEL 34.0 MMOL/L (20-31); CHLORIDE LEVEL 101.0 MMOL/L (98-107); CREATININE FOR GFR 1.05 MG/DL (0.55-1.30); GLOMERULAR FILTRATION RATE 58.6 (>45); POTASSIUM SERUM 4.1 MMOL/L (3.5-5.1); SODIUM LEVEL 145.0 MMOL/L (136-145)
== END ==
LOC: M SFHCLERA 13:41
PROVIDERS: ATTEND Internal Medicine
DX: J44.9 Chronic obstructive pulmonary disease, unspecified (principal)

== ENCOUNTER → 2025-01-09 | Outpatient (CLI) | payer MEDICARE, OTHER ==
[~2025-01-09] MED LIST changes: +ISOVUE-370 76% 100 ML VIAL As Ordered ONE
== END ==
LOC: M RAD 11:19
PROVIDERS: ATTEND Specialist
DX: C34.92 Malignant neoplasm of unspecified part of left bronchus or lung (principal)
CPT/HCPCS: 71260; Q9967